=== PATIENT | male | born 1950 | race African-American/Black ===

== ENCOUNTER 2019-11-23 01:05 | Inpatient (IN) | payer BC, MEDICAID ==
[~2019-11-23] VITALS: Ht 182.9 cm; Wt 88.9 kg
[2019-11-23 01:10] VITALS: BP 122/62
--- NOTE | 2019-11-23 01:14 | NUR ---
PT LIV BLS. TAKEN TO BED 7
--- NOTE | 2019-11-23 01:15 | NUR ---
Dr. Brewer examining patient.
[2019-11-23] MEDS ORDERED: NACL 0.9% 1,000 ML IV ONE ×3 (01:18→03:20)
--- NOTE | 2019-11-23 01:20 | NUR ---
PT BIB PAR[facility] FROM HOME C/O ALOC SINCE 3:00 pM. PT WAS RECENTLY SEEN LAST WEEK TO [facility] [facility] AND D/C. HE WAS NEWLY DIAGNOSE FOR LIVER CIRRHOSIS. NOTED ASCITIS ON HIS ABDOMEN. PER PARAMEMEDICS COVID TEST WAS DONE AT [facility] WITH NEGATIVE RESULT. HX- NEWLY DIAGNOSE LIVER CIRRHOSIS, ASCITIS, GERD, UTI WITH WISEMAN CATHETER INTACT FROM HOME. PT FAMILY NAME MARIANO COSME CAN BE CALLED [phone] PT CARE TO SILVINA SIMMONS.
--- NOTE | 2019-11-23 01:49 | NUR ---
X-Ray at bedside.
[2019-11-23 01:55] LABS: HEMOGLOBIN 8.2 g/dL (12.0-18.0); LYMPHOCYTES # (AUTO) 0.2 K/uL (2.0-11.5); RED CELL DISTRIBUTION WIDTH 29.1 % (11.6-13.7); WHITE BLOOD COUNT (AUTO) 3.9 K/uL (4.8-10.8)
--- NOTE | 2019-11-23 01:58 | NUR ---
PT BIBA C/O increasing ALOC, per EMS PT usually goes in and out of confusion, but since this morning has stayed confused with GCS of 14. PT awake, AAOx1 (to name only), follows commands, speech clear/delayed. PT denies pain at this time. ABD is distended, firm, non tender when palpated. PT eyes and skin have juandice tent to them.
[2019-11-23 02:02] LABS: BASOPHILS % (AUTO) 0.8 % (0.0-2.0); EOSINOPHILS % (AUTO) 0.5 % (0.0-4.0); HEMATOCRIT 26.8 % (36-52); LYMPHOCYTES % (AUTO) 4.7 % (20.5-51.1); MEAN CORPUSCULAR HEMOGLOBIN 23 pg (27-31); MEAN CORPUSCULAR HGB CONC 31 g/dL (33-37); MEAN CORPUSCULAR VOLUME 76.6 fL (80-94); MONOCYTES # (AUTO) 0.3 K/uL (0.8-1.0); NEUTROPHILS # (AUTO) 3.4 K/uL (1.8-7.7); PLATELET COUNT (AUTO) 98 K/uL (140-450)
--- NOTE | 2019-11-23 02:12 | NUR ---
URINE SAMPLE COLLECTED AND WALKED TO LAB
[2019-11-23 02:19] LABS: ALBUMIN 2.6 g/dL (3.4-5.0); ANION GAP 15.4 (8-16); CARBON DIOXIDE 21.4 mmol/L (21-32); CREATININE 1.5 mg/dL (0.6-1.3); POTASSIUM 3.8 mmol/L (3.5-5.1); TOTAL BILIRUBIN 1.4 mg/dL (0.0-1.0)
[2019-11-23] MEDS ORDERED: MORPHINE SULFATE 4 MG/ML SYR IVP ONE (02:45)
[2019-11-23] MEDS ORDERED: ONDANSETRON 4 MG/2 ML VIAL IVP ONE (02:45)
--- NOTE | 2019-11-23 03:40 | NUR ---
Dr Brewer obtained consent for abdominal paracenthesis with family over the phone. PT pulled out IV, new IV started, wrapped in coban.
[2019-11-23] MEDS ORDERED: cefTRIAXone 1,000 MG VIAL ONE (03:46)
--- NOTE | 2019-11-23 04:11 | NUR ---
Dr Bowen, Unruly RN, and Gwyn CAICEDO at bedside for paracenthesis
[2019-11-23 04:33] LABS: APPEARANCE,URINE SL CLOUDY (CLEAR); BILIRUBIN,URINE NEGATIVE (NEGATIVE); BLOOD, URINE 2+ (NEGATIVE); COLOR,URINE YELLOW (YELLOW); LEUKOCYTE ESTERASE ,URINE 2+ (NEGATIVE); NITRITE, URINE POSITIVE (NEGATIVE); UGLUCOSE NEGATIVE (NEGATIVE)
--- NOTE | 2019-11-23 04:48 | NUR ---
approximately 4500ml of yellow/orange liquid drained during paracentesis
[2019-11-23 04:50] LABS: WBC,URINE 16-25 (MOD) /HPF (0-5)
[2019-11-23 04:51] LABS: OTHER CASTS, URINE WBC CASTS 1+ /LPF (None Seen)
[2019-11-23] MEDS: NACL 0.9% 1,000 ML IV SCH ×2 (05:41→22:21)
[2019-11-23] MEDS ORDERED: MORPHINE SULFATE 2 MG/ML SYR IVP PRN (05:45)
[2019-11-23] MEDS ORDERED: ONDANSETRON 4 MG/2 ML VIAL IM/IVP PRN (05:45)
[2019-11-23] MEDS ORDERED: HYDROcodone/APAP 5/325 MG 1 TAB TAB PO PRN (05:45)
[2019-11-23] MEDS ORDERED: DOCUSATE SODIUM 100 MG GELCAP PO PRN (05:45)
--- NOTE | 2019-11-23 06:35 | NUR ---
Admited to tele. Will go to room 124. Belongings list completed. Report to nurse.
[2019-11-23 06:45] VITALS: BP 114/68
--- NOTE | 2019-11-23 06:45 | NUR ---
Received patient from ER via gurney. Admitted for increased ALOC. Patient awake,alert, doesn't answer back when you ask him question. Vital signs stable, afebrile, sating 97% on RA. Sinus rhythm on cardiac nurse, HR- 91. IVF NS infusing @ 150 cc/hr as ordered. Rboertson catheter in placed, draining dark karol urine with sediments. No sign and symptoms of distress noted. Will endorse the patient to the oncoming Rn for continuity of care. Call light within reach.
[2019-11-23 06:51] LABS: MAGNESIUM 1.3 mg/dL (1.8-2.4); PHOSPHORUS 4.4 mg/dL (2.5-4.9); THYROID STIMULATING HORMONE 3.81 uIU/mL (0.34-3.74)
--- NOTE | 2019-11-23 07:30 | NUR ---
REPORT RECEIVED FROM COMPUTER TECHNOLOGY TEACHER NURSE. ASSESSMENT DONE ON PT. PT IS RESPONSIVE. PT IS AOX2. SKIN IN TACT. IV IN PLACE. PT WANTS TO BE FULL CODE. NO KNOW ALLERGIES PER PT. PT DOES NOT REMEMBER HIS VACCINE STATUS. PT NEURO CHECK INTACT. NO COMPLAINS OF PAIN. NO DISTRESS NOTED. PT IS RESPONSIVE BY SLIGHTLY SLOW IN RESPONDING. PERRLA. BED IN LOW POSITION. CALL LIGHT IN REACH.
--- NOTE | 2019-11-23 07:30 | NUR ---
Patient stable. Endorsed pt to day Rn Piper for continuity of care. Bed in low position. Signing off.
[2019-11-23 07:34] LABS: BARBITURATE, URINE NEGATIVE ng/ml (NEG <=200); BENZODIAZEPINE, URINE NEGATIVE ng/mL (NEG <=200); CANNABINOID, URINE NEGATIVE ng/mL (NEG <=50); COCAINE, URINE NEGATIVE ng/mL (NEG <=300); OPIATE, URINE NEGATIVE ng/mL (NEG <=2000); PHENCYCLIDINE SCREEN,URINE NEGATIVE ng/mL (NEG <=25)
[2019-11-23 08:00] VITALS: BP 103/67
[2019-11-23] MEDS: PANTOPRAZOLE 40 MG INJ VIAL IVP SCH (08:44)
[2019-11-23 09:10] LABS: RBC, BODY FLUID 20000 /cu. mm.; WBC, BODY FLUID 11600 /cu. mm.
[2019-11-23] MEDS ORDERED: MAGNESIUM OXIDE 400 MG TAB PO SCH (09:28)
[2019-11-23] MEDS ORDERED: MAG SULF 2000 MG/WATER PREMIX 50 ML IV PRN (09:30)
--- NOTE | 2019-11-23 11:53 | NUR ---
NOTED WITH LOW BLOOD PRESSURE OF 91/56. 1 BAG NS BOLUS INFUSING PER DR SRIVASTAVA. WILL CONTINUE TO MONITOR.
[2019-11-23 12:00] VITALS: BP 91/56
--- NOTE | 2019-11-23 12:30 | NUR ---
PT IS SITTING IN BED AND RESPONSIVE AND EATING LUNCH. HEART RATE AT 95. BLOOD PRESSURE AT 108/53. 500 ML IV BOLUS INFUSED SO FAR. NO DISTRESS. WILL CONTINUE TO MONITOR. CALL LIGHT IN REACH.
--- NOTE | 2019-11-23 14:22 | NUR ---
PT IS SITTING IN BED HOB AT 30. WATCHING TELEVISION. PT IS AWAKE AND RESPONSIVE. O2 SATS AT 98%. HR AT 92. NO DISTRESS. WILL CONTINUE TO MONITOR. CALL LIGHT IN REACH.
[2019-11-23] MEDS: ACETAMINOPHEN 325 MG TAB PO PRN ×2 (15:42→20:55)
[2019-11-23 16:00] VITALS: BP 108/65
--- NOTE | 2019-11-23 16:09 | NUR ---
TABULATING MACHINE MECHANIC NOTE: Patient's Orientation Unable To Assess Information Provided By MARIANO COSME - DAUGHTER Comments SW WAS UNABLE TO MEET PATIENT AT BEDSIDE. Veneer Glue Spreader, Realtionship and Phone Number MARIANO COSME [facility] Power of Shear Grinder Operator Helper No Does Patient Have a POLST No Identifying Problems No Social Work Triggers Is A Social Work Consult Needed No Mandate Report Filed No Explanation Of Identifying Problems PATIENT IS A 68-YEAR-OLD MALE ADMITTED FOR SEPSIS AND UTI. PATIENT'S PMHX IS UNKNOWN. Admitted From Home Pre-Admission Level Of Functioning Status Independent/Ambulatory Prior Resources/Services Used In Last 12 Months No Prior Resources Used Prior DME No Prior DME Used Living Situation Lives With Family House Other Living Situation/Comment PATIENT HAS ADEQUATE SUPPORT AT HOME. Patient Had Caregiver No Home Support No Caregiver Issues Financial Issues No Known Financial Issue Referral To The Financial Counselor Needed No Factors/Needs No D/C Needs Identified Pt/Rep Participated In Discharge Plan Yes Patient/Family Agress With Discharge Plan Yes Discharge Plan Comments TENTATIVE DISCHARGE PLAN IS FOR PATIENT TO RETURN HOME.
--- NOTE | 2019-11-23 19:19 | NUR ---
SHIFT REPORT GIVEN TO SERVICE WORKER NURSE. PT IS IN BED IN STABLE CONDITION.
--- NOTE | 2019-11-23 19:30 | NUR ---
RECEIVED REPORT FROM ANA MARIA SIMMONS DAYSHIFT NURSE AT BEDSIDE FOR CONTINUITY OF CARE, PT IN STABLE CONDITION.
[2019-11-23 20:00] VITALS: BP 98/59
--- NOTE | 2019-11-23 20:00 | NUR ---
PT IN BE HE IS AOX2-3 AWAKE NO C/O OF PAIN. IV SITE INTACT AND RUNNING FLUIDS ORDERED.V/S IN NORMAL LIMITS.ALL ORDER PRECAUTIONS IN PLACE.
--- NOTE | 2019-11-23 21:00 | NUR ---
ULTA SOUND COMPLETED OF ABDOMEN, PT GIVEN FOOD REQUESTED. ALL SCHEDULED MEDS GIVEN ORDERED. PT HAS NO C/O VOICED AND ALL REQUESTS ATTENDED.
--- NOTE | 2019-11-23 22:00 | NUR ---
PT WAS TURNED, CHANGED AND REPOSITIONED IN BED. ALL ORDERED PRECAUTIONS IN PLACE. IV SITE INTACT AND RUNNING FLUIDS ORDERED. PT ON ROOM AIR RESPIRATIONS EVEN AND UNLABORED.
[2019-11-24] VITALS: BP 114/54
--- NOTE | 2019-11-24 | NUR ---
PT WAS TURNED, CHANGED AND REPOSITIONED IN BED. V/S IN NORMAL RANGE PT HAD NO C/O VOICED. HE IS LYING IN BED WATCHING TV. ALL REQUESTS ATTENDED AND ALL PRECAUTIONS IN PLACE.
[2019-11-24 04:00] VITALS: BP 110/62
--- NOTE | 2019-11-24 04:30 | NUR ---
PT IN BED NO C/O VOICED . V/S FOLLOWS: T 98.12 P 92 R 18 B/P 110/62 02 100% ON ROOM AIR. [facility] CALLED TO REPORT A POSITIVE GRAM COCCI IN THE BLOOD. EMPIRIC TREATMENT ALREADY ORDERED (ROCEPHIN) WILL AWAIT THE RESULTS OF CULTURE AND SENSITIVITY. IV INTACT FLUIDS RUNNING ORDERED AND ALL ORDERED PRECAUTIONS IN PLACE.
[2019-11-24 06:53] LABS: BASOPHILS % (AUTO) 0.3 % (0.0-2.0); EOSINOPHILS # (AUTO) 0.2 K/uL (0-0.4); EOSINOPHILS % (AUTO) 1.5 % (0.0-4.0); HEMATOCRIT 23.5 % (36-52); HEMOGLOBIN 7.1 g/dL (12.0-18.0); LYMPHOCYTES # (AUTO) 0.6 K/uL (2.0-11.5); LYMPHOCYTES % (AUTO) 5.6 % (20.5-51.1); MEAN CORPUSCULAR HEMOGLOBIN 23 pg (27-31); MEAN CORPUSCULAR HGB CONC 30 g/dL (33-37); MEAN CORPUSCULAR VOLUME 77.3 fL (80-94); MONOCYTES % (AUTO) 9.8 % (1.7-9.3); NEUTROPHILS # (AUTO) 8.4 K/uL (1.8-7.7); NEUTROPHILS % (AUTO) 82.8 % (42.2-75.2); PLATELET COUNT (AUTO) 64 K/uL (140-450); RED BLOOD CELL COUNT(AUTO) 3.03 MIL/uL (4.20-6.10); RED CELL DISTRIBUTION WIDTH 27.2 % (11.6-13.7); WHITE BLOOD COUNT (AUTO) 10.2 K/uL (4.8-10.8)
--- NOTE | 2019-11-24 07:30 | NUR ---
received report from [facility] nurse, assumed care. pt resting comfortably with no s/s of pain and/or distress at this time. personal belongings, bedside table, call light within reach. will continue to monitor.
[2019-11-24 07:44] LABS: ANION GAP 12.3 (8-16); CARBON DIOXIDE 20.7 mmol/L (21-32); CREATININE 1.4 mg/dL (0.6-1.3)
[2019-11-24 09:26] LABS: CHOL/HDL RATIO 1.7 (1-4.5)
[2019-11-24 09:33] VITALS: BP 99/56
--- NOTE | 2019-11-24 09:43 | NUR ---
PATIENT HAS BEEN SCREENED AND CATEGORIZED MODERATE NUTRITION RISK. PATIENT WILL BE SEEN WITHIN 3-5 DAYS OF ADMISSION. 11/25/19 11/27/[address]
[2019-11-24 10:06] LABS: FOLIC ACID 10.8 ng/mL (>3.0)
[2019-11-24] MEDS: PANTOPRAZOLE 40 MG INJ VIAL IVP SCH (11:10)
[2019-11-24 12:00] VITALS: BP 104/60
[2019-11-24] MEDS: NACL 0.9% 1,000 ML IV SCH (16:12)
--- NOTE | 2019-11-24 17:26 | NUR ---
P.T. NOTES P.T. EVAL COMPLETED; REFER TO EVAL FOR DETAILS; WILL BENEFIT W/ P.T. POST ACUTE STAY.
[2019-11-24] MEDS: ACETAMINOPHEN 325 MG TAB PO PRN (17:37)
--- NOTE | 2019-11-24 18:05 | NUR ---
care plan reviewed, interventions implemented: fall risk prevention, repositioned frequently throughout shift, hourly rounding, labs and i/o monitored. VSS, febrile towards end of shift, tylenol x2 given for temperature of 101.3 temporal. pt states he feels fine and continues on iv abx with no adverse reactions noted and/or reported. critical value came back with gram + cocci/clusters, CRN aware. all needs met this shift. personal belongings, bedside table call light within reach. will continue to monitor.
--- NOTE | 2019-11-24 19:20 | NUR ---
RECEIVED PT IN STABLE CONDITION FROM AM NURSE FOR CONTINUITY OF CARE. AWAKE,ALERT ,ORIENTED X2. ON TELE MONITOR. WITH NO S/S OF ANY RESPIRATORY DISTRESS NOTED. IVF INFUSING WELL ON THE LT AC G#20 CLEAR AND PATENT. BEDREST. WITH WISEMAN CATHETER DRAINING WELL. FREQ ROUNDS NEEDED. BED ON LOW POSITION. SIDE RAILS UP X2. CALL LIGHT WITHIN REACH. BED ALARM ON. WILL CONTINUE TO MONITOR.
[2019-11-24 20:00] VITALS: BP 109/59
--- NOTE | 2019-11-24 21:00 | NUR ---
MADE ROUNDS. PT IS ASLEEP. NO S/S OF ANY DISCOMFORT NOR PAIN NOTED.
--- NOTE | 2019-11-24 23:00 | NUR ---
CHECKED ON PT. SLEEPING AT THIS TIME. NO S/S OF ANY DISCOMFORT NOTED. WILL CONTINUE TO MONITOR.
[2019-11-25] VITALS: BP 119/57
--- NOTE | 2019-11-25 01:30 | NUR ---
MADE ROUNDS. PT REQUESTED FOR SOME PUDDING. TOLERATED WELL.
--- NOTE | 2019-11-25 02:30 | NUR ---
MADE ROUNDS. PT ASLEEP. NO S/S OF ANY DISCOMFORT /PAIN NOTED.
[2019-11-25 03:49] VITALS: BP 130/72
--- NOTE | 2019-11-25 04:55 | NUR ---
BLOOD CULTURE ANAEROBIC RESULT POSITIVE GRAM +COCCI. PAGED DR. Parker HODGES AND MADE AWARE. HE SAID TO CONTINUE WITH ROCEPHIN ANTIBIOTICS FOR NOW AND WILL WAIT FOR THE CULTURE.
[2019-11-25 06:20] LABS: ANION GAP 12.7 (8-16); CARBON DIOXIDE 21.3 mmol/L (21-32); CREATININE 1.3 mg/dL (0.6-1.3)
[2019-11-25 06:23] LABS: BASOPHILS % (AUTO) 0.5 % (0.0-2.0); EOSINOPHILS # (AUTO) 0.1 K/uL (0-0.4); EOSINOPHILS % (AUTO) 1.3 % (0.0-4.0); HEMATOCRIT 26.2 % (36-52); LYMPHOCYTES # (AUTO) 0.4 K/uL (2.0-11.5); LYMPHOCYTES % (AUTO) 6.4 % (20.5-51.1); MEAN CORPUSCULAR HEMOGLOBIN 23 pg (27-31); MEAN CORPUSCULAR HGB CONC 31 g/dL (33-37); MONOCYTES # (AUTO) 0.5 K/uL (0.8-1.0); MONOCYTES % (AUTO) 7.9 % (1.7-9.3); NEUTROPHILS # (AUTO) 5.8 K/uL (1.8-7.7); NEUTROPHILS % (AUTO) 83.9 % (42.2-75.2); PLATELET COUNT (AUTO) 71 K/uL (140-450); RED BLOOD CELL COUNT(AUTO) 3.45 MIL/uL (4.20-6.10); RED CELL DISTRIBUTION WIDTH 27.3 % (11.6-13.7); WHITE BLOOD COUNT (AUTO) 6.9 K/uL (4.8-10.8)
[2019-11-25 06:30] LABS: MAGNESIUM 1.7 mg/dL (1.8-2.4); PHOSPHORUS 2.4 mg/dL (2.5-4.9)
--- NOTE | 2019-11-25 06:30 | NUR ---
IV ON THE LT AC G#20. PULLED OUT. NEW IV STARTED ON THE LT WRIST G#22. CLEAR AND PATENT.
--- NOTE | 2019-11-25 07:10 | NUR ---
ENDORSED PT IN STABLE CONDITION TO AM NURSE.
--- NOTE | 2019-11-25 07:12 | NUR ---
RECEIVED BEDSIDE REPORT FROM VIDEO COORDINATOR NURSE FOR CONTINUITY OF CARE. PATIENT AWAKE, ALERT AND ORIENTED X2. WITH NO ACUTE DISTRESS NOTED. IV INFUSING WELL WITH NS 60 CC/HR AT LEFT WRIST 22G, PATENT. WISEMAN DRAINING WELL WITH CLOUDY URINE. SINUS RHYTHM. SAFETY MEASURES IN PLACE. BED IN LOW POSITION, CALL LIGHT WITHIN REACH. WILL FREQUENT MAKE ROUNDS.
[2019-11-25] MEDS: NACL 0.9% 1,000 ML IV SCH (07:41)
[2019-11-25 08:00] VITALS: BP 124/68
[2019-11-25] MEDS: PANTOPRAZOLE 40 MG INJ VIAL IVP SCH (08:33)
--- NOTE | 2019-11-25 08:33 | NUR ---
SCHEDULED MORNING MEDICATIONS GIVEN, EDUCATION PROVIDED, PATIENT TOLERATED WELL. PATIENT IS HAVING BREAKFAST. AAOX3. SAFETY MEASURES IN PLACE. WILL CONTINUE TO MONITOR.
--- NOTE | 2019-11-25 11:05 | NUR ---
PATIENT RESTING IN BED, AWAKE, AAOX2. NO ACUTE DISTRESS NOTED. CALL LIGHT WITHIN REACH. WILL CONTINUE TO MONITOR.
--- NOTE | 2019-11-25 11:31 | NUR ---
P.T. NOTES PATIENT REFUSED TO PARTICIPATE WITH THERAPY SERVICES IN SPITE OF SEVERAL ATTEMPTS AND ENCOURAGEMENTS WERE GIVEN. EDUCATED ON THE IMPORTANCE OF MOBILITY AND GAIT FUNCTIONAL ACTIVITIES BUT STATES "NOT TODAY, MAYBE TOMORROW!". PLAN: FOLLOW UP AGAIN TOMORROW AND CONTINUE PER PLAN OF CARE IF HE REMAINS IN THIS HOSPITAL.
[2019-11-25 12:00] VITALS: BP 139/74
--- NOTE | 2019-11-25 13:05 | NUR ---
MADE ROUNDS. NO ACUTE DISTRESS NOTED. PT DENIES PAIN. PATIENT SITTING IN BED, AWAKE. AAOX2. SAFETY MEASURES IN PLACE. WILL CONTINUE TO MONITOR.
--- NOTE | 2019-11-25 15:00 | NUR ---
PATIENT RESTING IN BED. HOB ELEVATED. PATIENT DENIES PAIN OR DISCOMFORT. NO RESPIRATORY DISTRESS NOTED. WILL CONTINUE TO MONITOR.
[2019-11-25 16:00] VITALS: BP 131/76
--- NOTE | 2019-11-25 16:00 | NUR ---
DC PLANNIN YRS OLD MALE PATIENT WAS ADMITTED FROM HOME WITH A DX OF SEPSIS, UTI, R/O SBP . PT HAS A HX OF LIVER CIRRHOSIS ,HTN AND ASCITES. CXR SHOWED SHALLOW INSPIRATION NO OTHER EVIDENCE OF ACUTE CARDIOPULMONARY DISEASE. US ABDOMEN SHOWED SMALL ASCITES . ADMINISTERED ZOSYN AND ROCEPHIN ABX. ORDERED PARACENTESIS ,CONSULTED WITH ID. DC PLAN TO GO HOME WHEN STABLE CM TO FOLLOW. Addendum: 11/27/19 at 1614 by Johanna Diego CM DC PLANNING: IR PERFORMED ULTRASOUND GUIDED PARACENTESIS. REMOVED LARGE VOLUME OF ASCITES . BLOOD CULTURE GREW STAPHYLOCOCCUS , ADMINISTERED ZOSYN ,CONSULTED ID DR HELMS. CM TO FOLLOW Addendum: 11/28/19 at 1514 by Rolanda Castro CM FAXED PATIENTS CLINICALS TO [facility] [phone]. Addendum: 12/01/19 at 1201 by Rolanda Castro CM PATIENT REFUSES SNF. PER DR. HODGES PATIENT CAN DISCHARGE HOME, HE WILL RECOMMEND HOME HEALTH FOR PT. Addendum: 12/01/19 at 1311 by Rolanda Castro CM FAXED ORDER FOR HOME PT, WHEEL CHAIR, AND COMMODE TO INSURANCE. WILL FOLLOW UP Addendum: 12/01/19 at 1426 by Rolanda Castro CM FAXED PATIENTS CLINICALS TO [facility] [phone]. [place] [facility] [place] SHE RECEIVED FA[place] AND WILL CONTACT ME BACK AFTER REVIEWING AND RUNNING ELIGIBILITY Addendum: 12/01/19 at 1513 by Rolanda Castro CM TROY SAEED CALLED ASKING IF I COULD SET UP TRANSPORTATION FOR PATIENT. CONTACTED PATIENTS MUSTAPHA QUINTANA [phone] SHE WILL BE HERE BY 3:30 PM TO PARKING WORKER PATIENT. NOTIFIED TROY SAEED Addendum: 12/01/19 at 1605 by Rolanda Castro CM FOLLOWED UP WITH [employer] THEY CAN NOT ACCEPT THIS PATIENT BECAUSE THE PATIENTS INSURANCE IS NOT CONTRACTED. FAXED CLINICALS TO [employer] [phone] FAX [phone] Addendum: 12/01/19 at 1634 by Rolanda Castro CM FOLLOWED UP WITH [employer] AND SPOKE TO HE STATED THAT THEY CAN NOT ACCEPT THIS PATIENT AT THIS TIME BECAUSE THEY ARE HAVING TROUBLE RECEIVING PAYMENTS FROM [employer] Addendum: 12/01/19 at 1641 by Rolanda Castro CM FAXED PATIENTS CLINICALS TO [facility] FOR WHEEL CHAIR AND COMMODE. RECEIVED A CALL FROM [facility] HOWEVER THE PATIENTS INSURANCE DOES NOT COVER THE COST FOR DME Addendum: 12/01/19 at 1646 by Rolanda Castro SPOKE TO PATRICE AT [facility] TO INQUIRE IF THEY ACCEPT PATIENTS INSURANCE AND IF THEY SERVICE IN [place]. SHE STATED THAT THEY DO AND TO FAX CLINICALS TO [phone]. PHONE NUMBER [phone].
--- NOTE | 2019-11-25 17:00 | NUR ---
RECHECKED PATIENT'S TEMPERATURE. 99.5, COOLING ICE BAG PROVIDED. PATIENT TOLERATED WELL. WILL CONTINUE TO MONITOR.
--- NOTE | 2019-11-25 17:35 | NUR ---
PATIENT'S IV WAS ACCIDENTLY PULLED OUT BY THE PATIENT. SN STARTED NEW IV 22 G AT LEFT FOREARM. PATENT AND CLEAN. RECONNECT IV NS @60 CC/HR. PATIENT STILL DENIES PAIN OR DISCOMFORT. SAFETY MEASURES IN PLACE. WILL CONTINUE TO MONITOR.
[2019-11-25] MEDS: MAGNESIUM OXIDE 400 MG TAB PO SCH (19:01)
--- NOTE | 2019-11-25 19:02 | NUR ---
1 DOSE ONLY OF MAG-OX 400MG GIVEN, EDUCATION PROVIDED, PATIENT TOLERATED WELL. PATIENT DENIES PAIN OR DISCOMFORT, WILL ENDORSE PATIENT TO FLUE GAS ANALYST NURSE.
--- NOTE | 2019-11-25 19:34 | NUR ---
ENDORSED PATIENT TO FARMWORKER RICE NURSE FOR CONTINUITY OF CARE.
--- NOTE | 2019-11-25 19:35 | NUR ---
RECEIVE DPT IN STABLE CONDITION FROM AM NURSE. AWAKE,ALERT AND ORIENTED X3. ON TELE MONITOR. NO S/S OF ANY DISCOMFORT NOR PAIN NOTED. IVF INFUSING WELL ON THE LT FAg22. CLEAR AND PATENT. WISEMAN CATH DRAINING TO A CLOUDY YELLOWISH URINE. FREQ ROUNDS NEEDED. BED ON LOWEST POSITION. SIDE RAILS UP X2. CALL LIGHT PLACED WITHIN EASY REACH. WILL CONTINUE TO MONITOR.
[2019-11-25 20:00] VITALS: BP 120/72
[2019-11-25] MEDS: ACETAMINOPHEN 325 MG TAB PO PRN (20:32)
--- NOTE | 2019-11-25 20:32 | NUR ---
TEMP 101. COOLING MEASURES DONE. THEN ALSO GIVEN TYLENOL 650 MG PO. WILL CONTINUE TO MONITOR.
--- NOTE | 2019-11-25 21:30 | NUR ---
MADE ROUNDS. PT ASLEEP. TEMP RECHECKED RESULT 98.7
--- NOTE | 2019-11-25 23:30 | NUR ---
MADE ROUNDS. PT IS ASLEEP. NO DISCOMFORT NOTED.
[2019-11-26] VITALS (7 sets, daily range): BP systolic 106–130; BP diastolic 57–89
[2019-11-26] MEDS: NACL 0.9% 1,000 ML IV SCH ×2 (00:21→08:40)
--- NOTE | 2019-11-26 01:30 | NUR ---
MADE ROUNDS. PT IS SLEEPING WELL. NO S/S OF ANY DISCOMFORT/PAIN NOTED. WILL CONTINUE TO MONITOR.
--- NOTE | 2019-11-26 02:30 | NUR ---
MADE ROUNDS . PT ASLEEP. NO DISTRESS NOTED. O2 SAT 100% ON RA.WILL CONTINUE TO MONITOR.
--- NOTE | 2019-11-26 04:30 | NUR ---
PT IS AWAKE. NO C/O ANY DISCOMFORT /DISTRESS NOTED. O2 SAT ON RA 100%.
[2019-11-26 05:59] LABS: BASOPHILS # (AUTO) 0.1 K/uL (0.00-0.22); BASOPHILS % (AUTO) 0.7 % (0.0-2.0); EOSINOPHILS # (AUTO) 0.3 K/uL (0-0.4); EOSINOPHILS % (AUTO) 3.6 % (0.0-4.0); HEMATOCRIT 24.4 % (36-52); HEMOGLOBIN 7.5 g/dL (12.0-18.0); LYMPHOCYTES # (AUTO) 0.4 K/uL (2.0-11.5); LYMPHOCYTES % (AUTO) 5.8 % (20.5-51.1); MEAN CORPUSCULAR HEMOGLOBIN 23 pg (27-31); MEAN CORPUSCULAR HGB CONC 31 g/dL (33-37); MEAN CORPUSCULAR VOLUME 75.7 fL (80-94); MONOCYTES # (AUTO) 0.9 K/uL (0.8-1.0); MONOCYTES % (AUTO) 11.8 % (1.7-9.3); NEUTROPHILS # (AUTO) 5.9 K/uL (1.8-7.7); NEUTROPHILS % (AUTO) 78.1 % (42.2-75.2); PLATELET COUNT (AUTO) 70 K/uL (140-450); RED BLOOD CELL COUNT(AUTO) 3.22 MIL/uL (4.20-6.10); RED CELL DISTRIBUTION WIDTH 26.8 % (11.6-13.7); WHITE BLOOD COUNT (AUTO) 7.6 K/uL (4.8-10.8)
--- NOTE | 2019-11-26 06:30 | NUR ---
PT HAS BEEN STABLE THIS AAM . NO FEVER NOTED. LATEST TEMP 97.8
--- NOTE | 2019-11-26 07:29 | NUR ---
ENDORSED PT IN STABLE CONDITION TO AM NURSE.
--- NOTE | 2019-11-26 07:30 | NUR ---
BEDSIDE REPORT GIVEN BY NIGHT NURSE. PATIENT IN BED, ASLEEP AND EASILY AROUSABLE BY NAME OR TOUCH. RESPIRATIONS EVEN AND UNLABORED. SKIN WARM AND DRY TO TOUCH. IV INTACT AND PATENT TO LEFT FOREARM IVF NS INFUSING @ 60ML/HR. TOLERATING WELL. BED IN LOW POSITION. PLANS OF CARE DISCUSSED. CALL LIGHT WITHIN REACH.
[2019-11-26] MEDS: PANTOPRAZOLE 40 MG INJ VIAL IVP SCH (08:23)
[2019-11-26 08:46] LABS: ANION GAP 12.1 (8-16); CARBON DIOXIDE 21.6 mmol/L (21-32); CREATININE 1.1 mg/dL (0.6-1.3); POTASSIUM 3.7 mmol/L (3.5-5.1)
--- NOTE | 2019-11-26 09:30 | NUR ---
PATIENT ATE BREAKFAST. TOLERATED AM MEDS. DENIES PAIN OR DISCOMFORT. NO SOB NOTED.
[2019-11-26 12:20] LABS: MAGNESIUM 1.7 mg/dL (1.8-2.4); PHOSPHORUS 3.2 mg/dL (2.5-4.9)
--- NOTE | 2019-11-26 12:30 | NUR ---
PT IS AWAKE, EATING LUNCH INDEPENDENTLY. NO S/S OF DISTRESS NOTED.
--- NOTE | 2019-11-26 13:30 | NUR ---
RECEIVED CALL FROM RADIOLOGIST THAT US PARACENTESIS IS NOT APPROPRIATE TO BE DONE DUE TO INSUFFICIENT FLUID NOTED. DR. OLIVAS MADE AWARE.
--- NOTE | 2019-11-26 14:30 | NUR ---
PATIENT IS AWAKE, WATCHING TV. NO S/S OF DISTRESS NOTED. CALL LIGHT WITHIN REACH.
--- NOTE | 2019-11-26 15:02 | NUR ---
11/26/19 RD INITIAL ASSESSMENT COMPLETED PLEASE REFER TO NUTRITION ASSESSMENT UNDER CARE ACTIVITY FOR ESTIMATED NUTRITIONAL NEEDS. 1. CONTINUE HEPATIC MSC DIET TOLERATED 2. ENCOURAGE PO INTAKE 3. RD TO FOLLOW-UP 3-5 DAYS, MODERATE RISK JACKSON ZARAGOZA, RD
--- NOTE | 2019-11-26 16:55 | NUR ---
PER RADIOLOGY DEPT. [facility], A RADIOLOGIST WILL COORDINATE TOMORROW TO EVALUATE IF PATIENT WILL HAVE PARACENTESIS PROCEDURE. RECOMMENDED THAT PATIENT WILL NEED CURRENT LABS WITH PT/INR, PTT AND OBTAINED CONSENT FOR PARACENTESIS. DR. OLIVAS MADE AWARE. ORDER RECEIVED AND NOTED.
--- NOTE | 2019-11-26 17:09 | NUR ---
CONSENT OBTAINED VIA TELEPHONE FROM MARIANO (DAUGHTER). VERIFIED WITH 2ND NURSE.
--- NOTE | 2019-11-26 17:33 | NUR ---
ROUNDS MADE. PATIENT IS AWAKE, ORIENTED X2. WATCHING TV. NO DISTRESS NOTED. DENIES SOB OR DISCOMFORT.
[2019-11-26] MEDS: MAGNESIUM OXIDE 400 MG TAB PO SCH (18:50)
--- NOTE | 2019-11-26 20:00 | NUR ---
RECEIVED REPORT FROM THE DAY RN REGARDING THE PATIENT FOR CONTINUITY OF CARE. PATIENT ASLEEP DURING ROUNDS AND EASY TO AROUSED. NOT IN ANY DISTRESS. DENIES ANY PAIN,CHEST PAIN,SOB AND PALPITATIONS. VSS, AFEBRILE, SATING 99% ON RA. ST WITH PAC ON COMMERCIAL INSURANCE UNDERWRITER, HR-102. FALL PRECAUTION IMPLEMENTED. INSTRUCTED THE PATIENT NOT TO GET OOB WITHOUT ASSISTANCE. PATIENT VERBALIZED UNDERSTANDING BUT NEEDS REINFORCEMENT. CALL LIGHT WITHIN REACH.
--- NOTE | 2019-11-26 22:00 | NUR ---
NO SCHEDULED MEDICATIONS NOTED ON BRUSH HAND FOR THE PT. PATIENT SLEEPING OFF AND ON. NO SIGN AND SYMPTOMS OF DISTRESS NOTED AND NO COMPLAIN AT THIS TIME. SAFETY MEASURES IN PLACED. CALL LIGHT WITHIN REACH.
[2019-11-27] VITALS: BP 127/77
--- NOTE | 2019-11-27 | NUR ---
PATIENT VITAL SIGNS STABLE,AFEBRILE, SATING 100% ON RA. SINUS RHYTHM ON UTILITY ACCOUNTS DIRECTOR, HR-99. NO COMPLAIN OF PAIN AT THIS TIME. CALL LIGHT WITHIN REACH.
--- NOTE | 2019-11-27 02:15 | NUR ---
MADE ROUNDS AND HUNG A NEW BAG OF IVF. ABOUT TO REPOSITION THE PATIENT AND FOUND OUT THAT THE PATIENT IV IS OUT AND PER PATIENT HE PULLED IT OUT AND STATED THAT HE DOESN'T NEED IT. EXPLAINED TO THE PATIENT THAT I NEED TO PLACE A NEW IV BECAUSE HE HAS IVF RUNNING AND ANTIBIOTIC BUT PATIENT REFUSED. WILL TRY AGAIN LATER.
[2019-11-27] MEDS: NACL 0.9% 1,000 ML IV SCH (02:16)
[2019-11-27 04:00] VITALS: BP 115/84
--- NOTE | 2019-11-27 04:00 | NUR ---
MADE ROUNDS AND CHECKED THE PT VITAL SIGNS. PT VSS, AFEBRILE, SATING 99% ON RA. SINUS RHYTHM ON VENEER MEASURER, HR-99. DENIES PAIN AT THIS TIME.NOT IN ANY DISTRESS. CALL LIGHT WITHIN REACH.
[2019-11-27 05:57] LABS: BASOPHILS % (AUTO) 0.5 % (0.0-2.0); EOSINOPHILS # (AUTO) 0.2 K/uL (0-0.4); EOSINOPHILS % (AUTO) 2.1 % (0.0-4.0); HEMATOCRIT 26.1 % (36-52); LYMPHOCYTES # (AUTO) 0.5 K/uL (2.0-11.5); LYMPHOCYTES % (AUTO) 6.3 % (20.5-51.1); MEAN CORPUSCULAR HEMOGLOBIN 23 pg (27-31); MEAN CORPUSCULAR HGB CONC 31 g/dL (33-37); MONOCYTES # (AUTO) 0.8 K/uL (0.8-1.0); MONOCYTES % (AUTO) 9.7 % (1.7-9.3); NEUTROPHILS # (AUTO) 6.6 K/uL (1.8-7.7); NEUTROPHILS % (AUTO) 81.4 % (42.2-75.2); PLATELET COUNT (AUTO) 73 K/uL (140-450); RED BLOOD CELL COUNT(AUTO) 3.43 MIL/uL (4.20-6.10); RED CELL DISTRIBUTION WIDTH 26.2 % (11.6-13.7); WHITE BLOOD COUNT (AUTO) 8.1 K/uL (4.8-10.8)
[2019-11-27 06:23] LABS: MAGNESIUM 1.7 mg/dL (1.8-2.4); PHOSPHORUS 2.9 mg/dL (2.5-4.9)
[2019-11-27 06:30] LABS: ANION GAP 14.9 (8-16); CARBON DIOXIDE 19.9 mmol/L (21-32); CREATININE 1.1 mg/dL (0.6-1.3); POTASSIUM 3.8 mmol/L (3.5-5.1)
--- NOTE | 2019-11-27 06:34 | NUR ---
PATIENT STILL REFUSED TO PLACE A NEW IV LINE. OTHERWISE PATIENT IS STABLE. NO ACUTE EVENTS THROUGHOUT THE NIGHT. NO SIGN AND SYMPTOMS OF DISTRESS NOTED. NO COMPLAIN AT THIS TIME. ALL NEEDS ATTENDED. CALL LIGHT WITHIN REACH. WILL ENDORSE THE PATIENT TO THE ONCOMING RN FOR CONTINUITY OF CARE.
[2019-11-27 06:49] LABS: PROTHROMBIN TIME 12.9 secs (10.8-13.4)
--- NOTE | 2019-11-27 07:10 | NUR ---
RECEIVED PATIENT FROM NIGHT NURSE. PATIENT IS AWAKE AND RESPONSIVE. RESP EVEN AND UNLABORED ON ROOM AIR. NO IV ACCESS AT THIS TIME. WILL MAKE ATTEMPTS. NO NOTED DISTRESS PATIENT DENIES OF PAIN AT THIS TIME. PLAN OF CARE DISCUSSED WITH PATIENT. PATIENT VERBALIZED UNDERSTANDING. SAFETY MEASURES IN PLACE. WILL CONTINUE WITH CARE.
[2019-11-27 08:00] VITALS: BP 131/78
--- NOTE | 2019-11-27 09:50 | NUR ---
FEW ATTEMPTS MADE TO START IV, UNSUCCESSFUL. WILL ASK CHARGE NURSE FOR ASSIST.
[2019-11-27] MEDS: PANTOPRAZOLE 40 MG INJ VIAL IVP SCH (11:34)
--- NOTE | 2019-11-27 11:46 | NUR ---
IV INSERTION BY CHARGE NURSE SUCCESSFUL. LEFT UPPER ARM 22. ROCEPHIN AND MORNING ROUTINE MEDICATIONS GIVEN. PATIENT TOLERATED WELL. RESP EVEN AND UNLABORED ON ROOM AIR. PATIENT IS ENCOURAGED TO NOT PULL OUT HIS IV. PATIENT VERBALIZED UNDERSTANDING AND WILL COMPLY. SKIN IS WARM TO TOUCH. ABDOMEN IS ROUND HARD AND LARGE. PENDING PROCEDURES TODAY FOR PARACENTESIS. WILL CONTINUE TO MONITOR.
[2019-11-27 12:00] VITALS: BP 129/76
--- NOTE | 2019-11-27 12:48 | NUR ---
PATIENT IS GETTING HIS PARACENTESIS AT BEDSIDE. TIMEOUT FORM COMPLETED BY BEDSIDE WITH AND MARCELLA ESCALONA. ENDORSED PATIENT TO TROY COOPER FOR CONTINUITY OF CARE. PATIENT IN STABLE CONDITION.
--- NOTE | 2019-11-27 12:50 | NUR ---
RECEIVED PATIENT FROM AMADO SIMMONS FOR TRANSFER AND CONTINUITY OF CARE
--- NOTE | 2019-11-27 14:05 | NUR ---
PARACENTESIS COMPLETED. 7L OUTPUT. PATIENT STATED PARACENTESIS MADE A LITTLE DIFFERENCE. WILL SEND SPECIMEN TO THE LAB.
[2019-11-27 15:03] LABS: APPEARANCE,UNSPUN,BODY FLUID SLIGHTLY HAZY (CLEAR); COLOR,BODY FLUID YELLOW (LT YELLOW); SPECIMENTYPE,BODY FLUID PARACENTESIS; TOTAL VOLUME,BODY FLUID 7150 mL
[2019-11-27 16:03] LABS: APPEARANCE,SPUN,BODY FLUID CLEAR (CLEAR); POLYNUCLEAR, BODY FLUID 80 %; RBC, BODY FLUID 2720 /cu. mm.; WBC, BODY FLUID 2560 /cu. mm.
[2019-11-27 16:24] VITALS: BP 94/67
--- NOTE | 2019-11-27 16:27 | NUR ---
PATIENT IS RESTING IN BED. NO S/S OF DISTRESS NOTED. BED IN LOW POSITION. CALL LIGHT IS WITHIN REACH. WILL CONTINUE TO MONITOR.
--- NOTE | 2019-11-27 17:35 | NUR ---
HUNG ZOSYN IVPB AT 100ML/HR. PT RESTING IN BED WATCHING TV. NO ACUTE DISTRESS NOTED. WILL CONTINUE TO MONITOR.
[2019-11-27] MEDS ORDERED: PIPERACILLIN/TAZOBACTAM 3.375 GM in DEXTROSE 5% 50 ML IV SCH (18:00)
[2019-11-27] MEDS: MAGNESIUM OXIDE 400 MG TAB PO SCH (18:28)
--- NOTE | 2019-11-27 18:31 | NUR ---
MAG OX GIVEN FOR MAGNESIUM LEVEL OF 1.7. MEDICATION EDUCATION GIVEN. SWALLOWED PILL OKAY. WILL CONTINUE TO MONITOR.
--- NOTE | 2019-11-27 19:15 | NUR ---
ENDORSED PATIENT TO THE CARBON PAPER INTERLEAFER NURSE FOR CONTINUITY OF CARE. PATIENT IS IN STABLE CONDITION.
--- NOTE | 2019-11-27 19:15 | NUR ---
RECEIVED BEDSIDE ENDORSEMENT FROM AM SHIFT RN. AOX3. PATIENT IS NOT IN DISTRESS, RESPIRATION EVEN AND UNLABORED, NO SOB, DENIES PAIN, LOW BED IN PLACE, PLAN OF CARE DISCUSSED. CALL LIGHT WITHIN REACH.
[2019-11-27 20:00] VITALS: BP 119/79
--- NOTE | 2019-11-27 21:25 | NUR ---
SEEN BY DR. HELMS. ORDERED TO Gemini/Roula LEON. NOTED AND CARRIED OUT.
[2019-11-28] VITALS: BP 106/67
--- NOTE | 2019-11-28 | NUR ---
CHECKED PATIENT AND REPOSITIONED. KEPT CLEAN, DRY AND COMFORTABLE.
[2019-11-28] MEDS: ACETAMINOPHEN 325 MG TAB PO PRN (00:59)
--- NOTE | 2019-11-28 02:09 | NUR ---
PATIENT SLEEPING, RESPIRATION EVEN AND UNLABORED.
[2019-11-28] MEDS: NACL 0.9% 1,000 ML IV SCH ×2 (02:21→06:33)
[2019-11-28 04:00] VITALS: BP 106/64
--- NOTE | 2019-11-28 06:33 | NUR ---
HANGED A NEW BAG OF IVF NS AT 60 CC/HR ORDERED.
--- NOTE | 2019-11-28 07:15 | NUR ---
PATIENT IS IN STABLE CONDITION. ENDORSED TO AM SHIFT RN FOR CONTINUITY OF CARE.
--- NOTE | 2019-11-28 07:15 | NUR ---
RECEIVED BEDSIDE REPORT FROM SYRUP SHED SUPERVISOR NURSE FOR CONTINUITY OF CARE. PATIENT ASLEEP DURING ROUNDS AND EASY TO AROUSED. NOT IN ANY DISTRESS. DENIES ANY PAIN,CHEST PAIN,SOB AND PALPITATIONS. VSS, AFEBRILE, SATING 99% ON RA. IV SITE NOTED, PATENT AND INTACT WITH IVF RUNNING PER ORDERS. FALL PRECAUTION IMPLEMENTED. POC DISCUSSED AND PATIENT VERBALIZED UNDERSTANDING BUT NEEDS REINFORCEMENT. CALL LIGHT WITHIN REACH. WILL CONTINUE TO MONITOR.
[2019-11-28 08:00] VITALS: BP 98/40
[2019-11-28] MEDS: PANTOPRAZOLE 40 MG INJ VIAL IVP SCH (08:30)
--- NOTE | 2019-11-28 08:44 | NUR ---
FULLY AWAKE AND HAVING HIS BREAKFAST. DUE MEDICATION GIVEN. SAFETY MEASURES IN PLACE AND CONTINUE MONITOR
[2019-11-28 10:36] LABS: GLUCOSE,BODY FLUID 56 mg/dL
[2019-11-28 10:37] LABS: LDH,BODY FLUID 423 U/L
--- NOTE | 2019-11-28 11:57 | NUR ---
COVID TEST VIA THROAT SWAB DONE AND SENT TO LAB.
[2019-11-28 12:00] VITALS: BP 98/57
--- NOTE | 2019-11-28 13:10 | NUR ---
LUNCH SERVED WITH HEPATIC DIET
--- NOTE | 2019-11-28 14:10 | NUR ---
AWAKE AND REQUESTED TO CALL HIS THROUGH PHONE. NO COMPLAINTS MADE AND APPARENTLY WATCHING TV.
[2019-11-28 16:00] VITALS: BP 116/73
--- NOTE | 2019-11-28 18:10 | NUR ---
PATIENT IS CLEANED, CHANGED AND TURNED. NO SIGNS OF DISTRESS NOTED. WILL CONTINUE TO MONITOR.
[2019-11-28] MEDS: MAGNESIUM OXIDE 400 MG TAB PO SCH (18:14)
--- NOTE | 2019-11-28 18:16 | NUR ---
AFTERNOON MEDICATIONS GIVEN. MAGNESIUM 1.7. NO SIGNS OF DISTRESS NOTED. WILL CONTINUE TO MONITOR.
--- NOTE | 2019-11-28 19:23 | NUR ---
ENDORSED TO TRACK SERVICE WORKER NURSE FOR CONTINUITY OF CARE IN STABLE CONDITION
--- NOTE | 2019-11-28 19:24 | NUR ---
RECEIVED REPORT FROM GISEL RN. PT IS STABLE LAYING IN BED SEMI-FOWLERS POSITION. DENIES ANY DISTRESS AT THIS TIME.
[2019-11-28 20:00] VITALS: BP 102/62
--- NOTE | 2019-11-28 20:55 | NUR ---
LAYING IN BED IN SEMI-FOWLERS POSITION IN NO DISTRESS.. RESPIRATION EVEN AND UNLABORED. DENIES PAIN AT THIS TIME. V/S: 97.6, 101, 20, 102/76, 99 % RA. ABDOMINAL AREA SIGNIFICANTLY ROUND DUE TO ASCITES. BS ACTIVE X 4 PT WAS ASSISTED WITH MAKING OHONE CALL TO . ALL NEEDS MET AT THIS TIME. CONTINUES TO RECEIVE IVF NS AT 60ML/HR TO RIGHT UPPER ARM. IV PATENT AND INTACT. WILL CONTINUE WITH POC.
--- NOTE | 2019-11-28 22:10 | NUR ---
DURING ROUNDS PT IS OBSERVED WITH EYES CLOSED. RESPIRATION EVEN AND UNLABORED IN NO DISTRESS. WILL CONTINUE TO MONITOR.
[2019-11-28] MEDS ORDERED: ZOLPIDEM 5 MG TAB PO PRN (22:35)
[2019-11-29] VITALS: BP 122/76
--- NOTE | 2019-11-29 | NUR ---
PT ASSISTED WITH PROVISION AND OF CARE AND REFUSED TO BE TURNED. PT STATES IT IS UNCOMFORTABLE. V/S: 98.0, 103,1, 8, 122/76, 99% RA, PT C/O BEING UNABLE TO SLEEP. SPOKE WITH DR. HODGES WHO IS COVERING DR. RODRIGUEZ AND FOR AN ORDER FOR AMBIEN 5MG PO FOR SLEEP PRN. PT WAS GIVEN PRN AT 2323.
--- NOTE | 2019-11-29 02:30 | NUR ---
PT CURRENTLY RESTING IN BED WITH EYES CLOSED. RESPIRATION EVEN AND UNLABORED. IN NO ACUTE DISTRESS. WILL CONTINUE TO MONITOR SPO2 100 % ON RA. CALL LIGHT WITHIN REACH.
[2019-11-29 04:00] VITALS: BP 124/75
--- NOTE | 2019-11-29 04:30 | NUR ---
PT RESTING IN BED EASILY AROUSABLE. V/S: 98.1, 102, 18, 124/78, 100% RA PAIN 0/10. PT HAS MOMENTS OF AGITATION, RAISING VOICE AT STAFF. ATTEMPTED TO GET OUT OF BED X 1 HOWEVER PT WAS REDIRECTABLE. CURRENTLY CALM REQUEST TV TO BE TURNED ON ALL NEEDS MET IN NO DISTRESS.
--- NOTE | 2019-11-29 06:34 | NUR ---
PT AWAKE WATCHING TV. PT EASILY AGITATED, REFUSED LABS THIS MORNING STATING, "NO I DONT WANT IT." PT WAS EDUCATED. REMAINS ON 97% ON RA. IN NO DISTRESS. WILL CONTINUE TO MONITOR.
--- NOTE | 2019-11-29 07:16 | NUR ---
RECEIVED REPORT FROM FARM MACHINERY SET UP MECHANIC RN FOR CONTINUITY OF CARE. PT IS AAOX3, COOPERATIVE AND ABLE TO MAKE NEEDS KNOWN. PT ON RA SATING WELL. PT SKIN INTACT WITH 2 BANDAGES TO LEFT ADB FROM S/P PARACENTESIS ON 11.26. BANDAGES DRY AND INTACT. ADB DISTENDED AND HARD TO TOUCH. PER PT, HE DENIES PAIN. DISCUSSED POC WITH PT AND PT VERBALIZED UNDERSTANDING. WILL ROUND FREQUENTLY ON PT THROUGHOUT THE SHIFT.
--- NOTE | 2019-11-29 07:20 | NUR ---
REPORT GIVEN TO AM RN FOR CONTINUITY OF CARE. PT IS STABLE ALL NEEDS MET. PT WATCHING TV. SPO2 99% RA.
[2019-11-29 08:00] VITALS: BP 141/49
[2019-11-29] MEDS: PANTOPRAZOLE 40 MG INJ VIAL IVP SCH (09:00)
--- NOTE | 2019-11-29 09:40 | NUR ---
ADMINISTERED MORNING MEDS TO PT. PT TOLERATED WELL. ALL NEEDS MET. WILL CONTINUE TO ROUND FREQUENTLY ON PT THROUGHOUT THE SHIFT.
--- NOTE | 2019-11-29 11:12 | NUR ---
PT RESTING IN BED. ALL NEEDS MET.
[2019-11-29] MEDS: NACL 0.9% 1,000 ML IV SCH (11:41)
[2019-11-29 12:00] VITALS: BP 134/52
--- NOTE | 2019-11-29 13:29 | NUR ---
PT ASLEEP. ALL NEEDS MET.
--- NOTE | 2019-11-29 14:25 | NUR ---
RECEIVED CALL FROM PT DAUGHTER MARIANO. PER MARIANO, SHE RECEIVED LETTER FROM [facility] WHERE PT WAS ADMITTED PREVIOUSLY STATING PT TESTED POSITIVE FOR E.COLI AND WAS GIVEN RX FOR RIFAXIMIN 200MG PO BID. I NOTIFIED AND PER PT RECEIVING ABX THERAPY HERE INPATIENT. PT DIARRHEA ALSO SUBSIDED WHICH IS GOOD SIGN. WILL CONTINUE TO ASSESS PT. PT IN STABLE CONDITION AT THIS TIME.
--- NOTE | 2019-11-29 15:38 | NUR ---
PT SLEEPING. ALL NEEDS MET.
[2019-11-29 16:00] VITALS: BP 154/82
--- NOTE | 2019-11-29 17:22 | NUR ---
PT RESTING IN BED. ALL NEEDS MET.
[2019-11-29] MEDS: MAGNESIUM OXIDE 400 MG TAB PO SCH (18:00)
--- NOTE | 2019-11-29 18:49 | NUR ---
WILL ENDORSE PT TO FILTER TANK TENDER HELPER FOR CONTINUATION OF CARE. PT IN STABLE CONDITION AT THIS TIME.
[2019-11-29 20:00] VITALS: BP 124/76
--- NOTE | 2019-11-29 21:00 | NUR ---
VSS. DENIES ANY DISCOMFORT. IV INTACT/PATENT/INFUSING ORDERED. SAFETY MAINTAINED. SR UP X 2. CB IN REACH. ST ON TELE. WILL CONT TO MONITOR PT STATUS.
[2019-11-30] VITALS: BP 126/80
--- NOTE | 2019-11-30 | NUR ---
VSS. NO DISTRESS REPORTED/OBSERVED. IV INTACT/PATENT/INFUSING ORDERED. SAFETY MAINTAINED. SR UP X 2. CB IN REACH. WILL CONT TO MONITOR PT STATUS.
[2019-11-30 04:00] VITALS: BP 128/81
[2019-11-30] MEDS: NACL 0.9% 1,000 ML IV SCH (04:24)
[2019-11-30 06:18] LABS: BASOPHILS % (AUTO) 0.1 % (0.0-2.0); EOSINOPHILS # (AUTO) 0.2 K/uL (0-0.4); EOSINOPHILS % (AUTO) 1.5 % (0.0-4.0); HEMATOCRIT 27.4 % (36-52); HEMOGLOBIN 8.2 g/dL (12.0-18.0); LYMPHOCYTES # (AUTO) 0.4 K/uL (2.0-11.5); MEAN CORPUSCULAR HEMOGLOBIN 22 pg (27-31); MEAN CORPUSCULAR HGB CONC 30 g/dL (33-37); MEAN CORPUSCULAR VOLUME 74.9 fL (80-94); MONOCYTES % (AUTO) 7.1 % (1.7-9.3); NEUTROPHILS # (AUTO) 11.8 K/uL (1.8-7.7); PLATELET COUNT (AUTO) 128 K/uL (140-450); RED BLOOD CELL COUNT(AUTO) 3.66 MIL/uL (4.20-6.10); RED CELL DISTRIBUTION WIDTH 25.3 % (11.6-13.7); WHITE BLOOD COUNT (AUTO) 13.4 K/uL (4.8-10.8)
[2019-11-30 06:50] LABS: ANION GAP 16.2 (8-16); CARBON DIOXIDE 18.2 mmol/L (21-32); CREATININE 1.2 mg/dL (0.6-1.3); POTASSIUM 4.4 mmol/L (3.5-5.1)
[2019-11-30 07:18] LABS: LYMPHOCYTES % (AUTO) 3.3 % (20.5-51.1)
--- NOTE | 2019-11-30 07:30 | NUR ---
RECEIVED PT ASLEEP. NO SOB NOTED. NO C/O PAIN. IV TO LT UPPER ARM PATENT AND INTACT. CHEST, DIMINISHED AIR ENTRY TO THE BASES. ABDOMEN DISTENDED, ACTIVE BOWEL SOUNDS NOTED. WITH WISEMAN DRAINING MODERATE AMOUNTS OF DARK REYES COLORED URINE. BED ON LOW POSITION, WITH 3 SIDE RAILS UP. WILL CONTINUE TO MONITOR PT.
[2019-11-30 08:00] VITALS: BP 122/80
[2019-11-30] MEDS: PANTOPRAZOLE 40 MG INJ VIAL IVP SCH (09:38)
--- NOTE | 2019-11-30 10:30 | NUR ---
PT AWAKE. NO SOB NOTED. NO COMPLAINTS MADE. CARE ENDORSED TO MARCI.
--- NOTE | 2019-11-30 11:30 | NUR ---
PATIENT LYING DOWN IN BED WATCHING TV. NO DISTRESS NOTED. CONDITION UNCHANGED. WILL CONTINUE TO MONITOR.
[2019-11-30 12:00] VITALS: BP 114/76
--- NOTE | 2019-11-30 13:00 | NUR ---
PATIENT SITTING IN BED WITH LUNCH TRAY IN FRONT. CONDITION UNCHANGED. WILL CONTINUE TO MONITOR.
--- NOTE | 2019-11-30 14:47 | NUR ---
SECOND COVID SWAB PERFORMED. PATIENT TOLERATED WELL. WILL CONTINUE TO MONITOR.
[2019-11-30 16:00] VITALS: BP 115/74
--- NOTE | 2019-11-30 16:45 | NUR ---
PATIENT LYING DOWN IN BED SLEEPING, AROUSABLE BY VOICE. NO DISTRESS NOTED. DENIES ANY PAIN. CONDITION UNCHANGED. WILL CONTINUE TO MONITOR.
[2019-11-30] MEDS: MAGNESIUM OXIDE 400 MG TAB PO SCH (18:24)
--- NOTE | 2019-11-30 18:24 | NUR ---
SCHEDULED MEDICATIONS DUE GIVEN. WILL CONTINUE TO MONITOR.
--- NOTE | 2019-11-30 19:30 | NUR ---
GAVE REPORT TO CLOCK ASSEMBLER NURSE FOR CONTINUITY OF CARE. PATIENT IN STABLE CONDITION.
--- NOTE | 2019-11-30 19:31 | NUR ---
RECEIVED PT FROM PREVIOUS SHIFT RN FOR CONTINUITY OF CARE. PT A, A, O X 3, ON BEDREST NO SOB NOTED. NO C/O PAIN. IV TO LT UPPER ARM G 22, TKO PATENT AND INTACT. ABDOMEN DISTENDED, ACTIVE BOWEL SOUNDS NOTED. WITH WISEMAN DRAINING MODERATE AMOUNTS OF DARK REYES COLORED URINE. BED ON LOW POSITION, WITH 2 SIDE RAILS UP. WILL CONTINUE TO MONITOR PT.
[2019-11-30 20:00] VITALS: BP 124/73
--- NOTE | 2019-11-30 21:50 | NUR ---
CHECKED ON IV ON THE LEFT UPPER ARM G 22 NO SWELLING, NO PAIN, PATENT AND INTACT, W/ NS AT TKO
--- NOTE | 2019-11-30 23:12 | NUR ---
PATIENT SITTING IN BED WITH SNACK AND JUICE IN FRONT. PT EATING 50% OF SNACK. WILL CONTINUE TO MONITOR.
[2019-12-01] VITALS: BP 124/81
--- NOTE | 2019-12-01 00:12 | NUR ---
PT TRYING TO SLEEP, DOES NOT WANT THE TV OFF, PLACED THE CALL LIGHT WITHIN EASY REACH
--- NOTE | 2019-12-01 02:19 | NUR ---
SLEEPING NO COMPLAINTS, NO RESPIRATORY DISTRESS, NO COUGHING, NO SOB. WILL CONTINUE TO ROUND FREQUENTLY
[2019-12-01 04:00] VITALS: BP 117/75
--- NOTE | 2019-12-01 04:00 | NUR ---
VITAL SIGNS TAKEN WNL, STABLE, AFEBRILE. ABDOMEN STILL DISTENDED
--- NOTE | 2019-12-01 05:47 | NUR ---
FOUND THE WISEMAN CATHETER ON TOP OF PATIENT'S HEAD,PLACED BACK CATHETER UNDER THE BED, AND CHANGED THE FC SECURING DEVICE. INFORMED THE PATIENT NOT TO TRY TO PULL CATHETER, PT WILL BLEED, AND WE STILL NEED IT TO DRAIN HIS URINE. PT VERBALIZED UNDERSTANDING
[2019-12-01 06:38] LABS: ANION GAP 14.7 (8-16); CARBON DIOXIDE 18.9 mmol/L (21-32); POTASSIUM 4.6 mmol/L (3.5-5.1)
--- NOTE | 2019-12-01 06:45 | NUR ---
PT CLEANED BY MANAGER INTERMEDIATE, MADE COMFORTABLE, STABLE AT THIS TIME. WILL ENDORSE TO NEXT SHIFT FOR CONTINUITY OF CARE.
--- NOTE | 2019-12-01 07:15 | NUR ---
RECEIVED ENDORSEMENT FROM MOVIE EXTRA, AWAKE, ALERT, ORIENTEDX2, BREATHING SPONTANEOUSLY AT ROOM AIR, NOT IN DISTRESS NOTED, WITH IV CANNULA G22 AT LEFT UPPER ARM NOTED, WITH WISEMAN CATHETER DRAINING AN REYES COLOR URINE NOTED, SAFETY MEASURES IN PLACE.
[2019-12-01 08:00] VITALS: BP 156/63
[2019-12-01 08:07] LABS: BASOPHILS # (AUTO) 0.1 K/uL (0.00-0.22); BASOPHILS % (AUTO) 0.6 % (0.0-2.0); EOSINOPHILS # (AUTO) 0.2 K/uL (0-0.4); EOSINOPHILS % (AUTO) 1.4 % (0.0-4.0); HEMOGLOBIN 8.1 g/dL (12.0-18.0); LYMPHOCYTES # (AUTO) 0.6 K/uL (2.0-11.5); LYMPHOCYTES % (AUTO) 3.8 % (20.5-51.1); MEAN CORPUSCULAR HEMOGLOBIN 23 pg (27-31); MEAN CORPUSCULAR HGB CONC 30 g/dL (33-37); MEAN CORPUSCULAR VOLUME 75.2 fL (80-94); NEUTROPHILS # (AUTO) 12.6 K/uL (1.8-7.7); NEUTROPHILS % (AUTO) 87.2 % (42.2-75.2); PLATELET COUNT (AUTO) 149 K/uL (140-450); RED BLOOD CELL COUNT(AUTO) 3.58 MIL/uL (4.20-6.10); RED CELL DISTRIBUTION WIDTH 24.8 % (11.6-13.7); WHITE BLOOD COUNT (AUTO) 14.5 K/uL (4.8-10.8)
[2019-12-01] MEDS: PANTOPRAZOLE 40 MG INJ VIAL IVP SCH (08:46)
--- NOTE | 2019-12-01 09:00 | NUR ---
SITTING BESIDE THE BED AND HAVING HIS BREAKFAST. DUE MEDICATION GIVEN AND SAFETY MEASURES IN PLACE.
[2019-12-01] MEDS ORDERED: SULF-59 PO (10:37)
[2019-12-01] MEDS ORDERED: CEPH250C16 PO (10:37)
[2019-12-01 12:00] VITALS: BP 124/89
--- NOTE | 2019-12-01 12:05 | NUR ---
VITAL SIGNS TAKEN AND RECORDED, WITH IN NORMAL RANGE. APPARENTLY WATCHING TV. SAFETY MEASURES IN PLACE.
--- NOTE | 2019-12-01 14:10 | NUR ---
FOR DISCHARGE TODAY,WAITING FOR THE PLAN OF TELEPHONER.
[2019-12-01 15:15] VITALS: BP 124/89
--- NOTE | 2019-12-01 15:15 | NUR ---
12/01/19 RD INITIAL ASSESSMENT COMPLETED PLEASE REFER TO NUTRITION ASSESSMENT UNDER CARE ACTIVITY FOR ESTIMATED NUTRITIONAL NEEDS. 1. CONTINUE HEPATIC MSC DIET TOLERATED 2. RECOMMEND ENSURE BID 3. RECOMMEND SMALL AND FREQUENT MEALS 4. RD TO FOLLOW-UP 2-3 DAYS, HIGH RISK JACKSON ZARAGOZA, RD
--- NOTE | 2019-12-01 15:15 | NUR ---
[facility] PROFESSIONAL CONTACTED AND THE PATIENT WILL DISCHARGE TO HOME AND THE DAUGHTER WILL PICK HIM UP. TO BE FOLLOWED UP BY [facility] AT HOME.
--- NOTE | 2019-12-01 16:00 | NUR ---
PREPARED FOR DISCHARGE, IV CANNULA REMOVED AND DRESSING APPLIED, NO BLEEDING NOTED. WISEMAN CATHETER KEEP IN PLACE ORDERED BY , WILL FOLLOW UP IN THE CLINIC APPOINTMENT. DISCHARGED PACKET GIVEN AND VERBALIZED UNDERSTANDING.
--- NOTE | 2019-12-01 16:25 | NUR ---
DISCHARGED IN STABLE CONDITION PER WHEELCHAIR ACCOMPANIED TO PRIVATE VEHICLE, BREATHING SPONTANEOUSLY AT ROOM AIR. WISEMAN CATHETER CARE INSTRUCTION GIVEN TO THE DAUGHTER, VERBALIZED UNDERSTANDING. ID WRIST BAND REMOVED AND PROPERLY DISPOSED.
== END 2019-12-01 16:25 | disposition home health service (06) | DRG 871 ==
LOC: MED 01:05 → MTU 05:48
PROVIDERS: ADMIT Hospitalist; ATTEND Hospitalist
PROC: 0W9G3ZZ Drainage of Peritoneal Cavity, Percutaneous Approach (ICD-10-PCS; principal; 2019-11-23)
PROC: 0W9G3ZZ Drainage of Peritoneal Cavity, Percutaneous Approach (ICD-10-PCS; 2019-11-27)
DX: A41.9 Sepsis, unspecified organism (principal); N17.0 Acute kidney failure with tubular necrosis; E43 Unspecified severe protein-calorie malnutrition; K65.2 Spontaneous bacterial peritonitis; N39.0 Urinary tract infection, site not specified; D61.818 Other pancytopenia; R18.8 Other ascites; K76.6 Portal hypertension; D68.9 Coagulation defect, unspecified; D72.825 Bandemia; B96.1 Klebsiella pneumoniae [K. pneumoniae] as the cause of diseases classified elsewhere; K80.20 Calculus of gallbladder without cholecystitis without obstruction; K74.60 Unspecified cirrhosis of liver; K72.90 Hepatic failure, unspecified without coma; B95.61 Methicillin susceptible Staphylococcus aureus infection as the cause of diseases classified elsewhere; I10 Essential (primary) hypertension; Z20.828 Contact with and (suspected) exposure to other viral communicable diseases; E86.0 Dehydration; E83.42 Hypomagnesemia; R65.20 Severe sepsis without septic shock; Z79.899 Other long term (current) drug therapy; Z68.26 Body mass index [BMI] 26.0-26.9, adult
CPT/HCPCS: 36415; 49083; 71045; 76705; 80048; 80053; 80305; 81001; 82140; 82150; 82607; 82728; 82746; 82945; 83036; 83540; 83605; 83615; 83690; 83735; 83880; 84100; 84157; 84443; 84484; 85025; 85045; 85610; 85730; 87040; 87070; 87075; 87081; 87086; 87186; 87205; 88305; 88313; 88342; 89051; 93005; 96361; 96365; 96375; 97110; 97112; 97116; 97530; 99285; C9113; J0696; J2001; J2270; J2405; J2543; J3475; J7030; J7060; Q0092; U0003-CS

== ENCOUNTER 2019-12-01 20:44 | Inpatient (IN) | payer BC, MEDICAID ==
[~2019-12-01] VITALS: Ht 167.6 cm; Wt 67.6 kg
[~2019-12-01 20:44] MED LIST: CEPH250C16 PO; SULF-59 PO
[2019-12-01] MEDS ORDERED: cefTRIAXone 1,000 MG in DEXT 5% MINI-BAG PLUS 50 ML IV ONE (20:50)
--- NOTE | 2019-12-01 20:50 | NUR ---
Note jaye in ED - 12/01/19 at 2338 by VIRY 20 G IV CATH INSERTED IN L A/C , IV FLUSHED W/ 10 CC NS , IV SITE PATENT , NO INFILTRATION, REDNESS, SWELLING OR PAIN NOTED.
--- NOTE | 2019-12-01 20:52 | NUR ---
PT LIV [place]. TAKEN TO BED 4
[2019-12-01] MEDS ORDERED: cefTRIAXone 1,000 MG VIAL ONE (20:54)
--- NOTE | 2019-12-01 20:55 | NUR ---
20 G IV CATH INSERTED IN L A/C , IV FLUSHED W/ 10 CC NS , IV SITE PATENT , NO INFILTRATION, REDNESS, SWELLING OR PAIN NOTED.
--- NOTE | 2019-12-01 20:55 | NUR ---
BLOOD LABS COLLECTED AND HANDED TO LAB.
[2019-12-01 21:00] VITALS: BP 110/73
--- NOTE | 2019-12-01 21:00 | NUR ---
68 Y/O MALE BIBA C/O ADB PAIN & ABD DISTENTION. PT WAS D/C FROM [facility] TODAY - PRIOR DX PERITONITIS. PT ABD DISTENTED, FIRM AND NONTENDER. PT C/O ABD PAIN 11/23. PT WISEMAN INSERTED PRIOR TO ER ARRIVAL , 20 ML URINE OUTPUT NOTED. PT AWAKE , AAOx1 (to name only), ABLE TO FOLLOW COMMANDS , RR EVEN AND UNLABORED. PT RESTING IN BED, LOCKED AND IN LOWEST POSITION, HOB ELEVATED, SIDE RAIL X2 FOR PT SAFETY. VISIBLE RISE AND ALL OF CHEST , RR EVEN AND UNLABORED, SAO2 97%. VSS. PMH: HTN , CIRRHOSIS NKA
--- NOTE | 2019-12-01 21:08 | NUR ---
EKG PERFORMED AT BEDSIDE
--- NOTE | 2019-12-01 21:14 | NUR ---
Dr. Palacios examining patient.
[2019-12-01] MEDS ORDERED: ACETAMINOPHEN EXTRA STRENGTH 500 MG TAB PO ONE (21:15)
[2019-12-01 21:19] LABS: BASOPHILS # (AUTO) 0.1 K/uL (0.00-0.22); BASOPHILS % (AUTO) 0.7 % (0.0-2.0); EOSINOPHILS # (AUTO) 0.1 K/uL (0-0.4); EOSINOPHILS % (AUTO) 0.5 % (0.0-4.0); HEMATOCRIT 29.9 % (36-52); HEMOGLOBIN 8.8 g/dL (12.0-18.0); LYMPHOCYTES # (AUTO) 0.6 K/uL (2.0-11.5); LYMPHOCYTES % (AUTO) 3.3 % (20.5-51.1); MEAN CORPUSCULAR HEMOGLOBIN 22 pg (27-31); MEAN CORPUSCULAR HGB CONC 30 g/dL (33-37); MEAN CORPUSCULAR VOLUME 74.8 fL (80-94); MONOCYTES % (AUTO) 5.5 % (1.7-9.3); NEUTROPHILS # (AUTO) 16.8 K/uL (1.8-7.7); PLATELET COUNT (AUTO) 251 K/uL (140-450); RED BLOOD CELL COUNT(AUTO) 3.99 MIL/uL (4.20-6.10); RED CELL DISTRIBUTION WIDTH 25.9 % (11.6-13.7); WHITE BLOOD COUNT (AUTO) 18.7 K/uL (4.8-10.8)
[2019-12-01] MEDS ORDERED: MORPHINE SULFATE 4 MG/ML SYR IVP ONE (21:20)
--- NOTE | 2019-12-01 21:42 | NUR ---
X-Ray at bedside.
[2019-12-01 22:10] LABS: APPEARANCE,URINE SL CLOUDY (CLEAR); BILIRUBIN,URINE 1+ (NEGATIVE); BLOOD, URINE TRACE-I (NEGATIVE); COLOR,URINE DARK YELLOW (YELLOW); LEUKOCYTE ESTERASE ,URINE 2+ (NEGATIVE); NITRITE, URINE NEGATIVE (NEGATIVE); PH,URINE 5.5 (5.0-9.0); UGLUCOSE NEGATIVE (NEGATIVE)
[2019-12-01 23:45] LABS: ALBUMIN 1.6 g/dL (3.4-5.0); ANION GAP 21.6 (8-16); CARBON DIOXIDE 14.6 mmol/L (21-32); CREATININE 1.8 mg/dL (0.6-1.3); POTASSIUM 5.2 mmol/L (3.5-5.1); TOTAL BILIRUBIN 1.8 mg/dL (0.0-1.0)
[2019-12-01 23:46] LABS: WBC,URINE 20-60 /HPF (0-5); YEAST,URINE Many /HPF (None Seen)
--- NOTE | 2019-12-02 00:30 | NUR ---
PT RESTING IN BED, LOCKED AND IN LOWEST POSITION , AROUSABLE TO VERBAL STIMULATION, HOB ELEVATED , SIDE RAIL X2 FOR PT SAFETY. RR EVEN AND UNLABORED, SAO2 97%. VSS.
--- NOTE | 2019-12-02 01:15 | NUR ---
SPOKE W/ MARIANO , PT DAUGHTER , ON UPDATE OF PT STATUS.
[2019-12-02] MEDS ORDERED: ACETAMINOPHEN 325 MG TAB PO PRN (01:45)
[2019-12-02] MEDS ORDERED: ONDANSETRON 4 MG/2 ML VIAL IVP PRN (01:45)
[2019-12-02] MEDS ORDERED: DOCUSATE SODIUM 100 MG GELCAP PO PRN (01:45)
--- NOTE | 2019-12-02 02:00 | NUR ---
# 16 FR Robertson catheter with 10 ml utilizing sterile technique. Immediate return of 5 ml YELLOW / CLOUDY urine noted. Bedside drainage bag placed below level of bladder. Pt tolerated procedure WELL.
--- NOTE | 2019-12-02 02:25 | NUR ---
PT PULLED OUT L A/C 20 G IV - IV CATH INTACT , NO REDNESS , SWELLING OR PAIN NOTED AT IV SITE.
--- NOTE | 2019-12-02 03:10 | NUR ---
Patient will be admitted to care of . Admited to [facility]. Will go to room 112B. Belongings list completed. Report to TROY LINDA.
[2019-12-02 03:35] VITALS: BP 108/69
--- NOTE | 2019-12-02 03:35 | NUR ---
PATIENT ARRIVED ON FLOOR AT 0310. RECEIVED REPORT FROM MADDI SIMMONS. PT IS RESTING COMFORTABLY IN BED. SPEECH CLEAR. AAOX2 SELF, TIME. RESPIRATIONS ARE EQUAL AND UNLABORED ON ROOM AIR SAT WELL 94%. PT WITH IV ON R BAUMANN 24G SL. IV WRAPPED D/T PT REMOVING LINES. SKIN IS INTACT. ABD DISTENDED LARGE. DX:ASCITES AND INTRACTABLE ABD PAIN. PT WITH WISEMAN CATH CHANGED TODAY IN ER. NOTED WITH SMALL AMOUNT OF LIGHT ORANGE URINE. MRSA SWAB OBTAINED. ORIENTED PT TO ROOM, STAFF AND CALL LIGHT. ATTEMPT TO OBTAIN ADMISSION ASSESSMENT BUT, PT IS UNCOOPERATIVE STATES, " I WANT TO SLEEP, NOT RIGHT NOW." INFORMATION OBTAINED FROM LAST ADMISSION PT WAS JUST D/C YESTERDAY. POC DISCUSSED WITH PT. BED ALARM ON. CALL LIGHT IS WITHIN REACH. WILL ROUND FREQUENTLY.
--- NOTE | 2019-12-02 05:00 | NUR ---
ASSISTED WAGON DRIVER WITH CHANGING PATIENT. PT WAS CLEANED AND REPOSITION FOR COMFORT. PT SKIN IS INTACT. PT STATES HAD PARACENTESIS A FEW DAYS AGO BAND-AID ON STOMACH NOTED. STOMACH BOWEL SOUNDS ACTIVE X4 LBM PT DOES NOT REMEMBER. WISEMAN CATH INTACT. SAFETY MEASURES ARE IN PLACE. WILL CONTINUE TO MONITOR.
[2019-12-02 06:00] LABS: HEMATOCRIT 28.2 % (36-52); HEMOGLOBIN 8.3 g/dL (12.0-18.0); MEAN CORPUSCULAR HEMOGLOBIN 22 pg (27-31); MEAN CORPUSCULAR HGB CONC 29 g/dL (33-37); PLATELET COUNT (AUTO) 210 K/uL (140-450); RED BLOOD CELL COUNT(AUTO) 3.71 MIL/uL (4.20-6.10); RED CELL DISTRIBUTION WIDTH 25.2 % (11.6-13.7)
[2019-12-02 06:24] LABS: ANION GAP 17.7 (8-16); CREATININE 1.9 mg/dL (0.6-1.3)
[2019-12-02 06:31] LABS: POTASSIUM 5.7 mmol/L (3.5-5.1)
--- NOTE | 2019-12-02 06:45 | NUR ---
PAGED DR. HODGES CRITICAL K 5.7 PER MD WILL COME IN TO ASSESS PT.
[2019-12-02] MEDS ORDERED: ALBUTEROL SULFATE/IPRATROPIU 3 ML SOL IH PRN (07:10)
--- NOTE | 2019-12-02 07:20 | NUR ---
GAVE BEDSIDE REPORT TO DAY RN. PT ENDORSED IN STABLE CONDITION.
--- NOTE | 2019-12-02 07:20 | NUR ---
RECEIVED PATIENT FROM NIGHT NURSE. PATIENT IS RESTING COMFORTABLY IN BED. NOTED ASCITE TO ABD, FIRM TO TOUCH. SKIN IS WARM TO TOUCH. RESP EVEN AND UNLABORED, DENIES OF ANY PAIN OR DISTRESS. RH [address] SAFETY MEASURES IN PLACE. PLAN OF CARE DISCUSSED WITH PATIENT. PATIENT VERBALIZED UNDERSTANDING. WILL CONTINUE TO MONITOR.
[2019-12-02 08:00] VITALS: BP 112/66
[2019-12-02 08:30] LABS: WHITE BLOOD COUNT (AUTO) 27.1 K/uL (4.8-10.8)
[2019-12-02 08:31] LABS: LYMPHOCYTES % (MANUAL) 2 % (20-46); MONOCYTES % (MANUAL) 2 % (5-12)
--- NOTE | 2019-12-02 09:25 | NUR ---
PATIENT HAS BEEN SCREENED AND CATEGORIZED MODERATE NUTRITION RISK. PATIENT WILL BE SEEN WITHIN 3-5 DAYS OF ADMISSION. 12/04/19 12/06/[address]
[2019-12-02] MEDS: MEROPENEM 1,000 MG in NACL 0.9% 100 ML IV SCH ×2 (09:59→21:49)
--- NOTE | 2019-12-02 10:15 | NUR ---
MORNING ROUTINE MEDICATION GIVEN ORDERED. PATIENT LAYING ON HIS LEFT SIDE AND TOLERATING WELL. DENIES OF PAIN AT THIS TIME. ABLE TO MAKE NEEDS KNOWN. ALERT AND ORIENTED X2. SAFETY MEASURES IN PLACE. CALL LIGHT WITHIN REACH. WILL CONTINUE TO MONITOR.
--- NOTE | 2019-12-02 12:15 | NUR ---
DC PLANNIN YRS OLD MALE PATIENT WAS ADMITTED FROM HOME WITH A DX OF INTRACTABLE ABDOMINAL PAIN AND ASCITES. PT HAS A HX OF CIRRHOSIS AND HYPERTENSION. PT WAS DISCHARGED HOME YESTERDAY. PT HAS BEEN REFUSED TO GO TO SNF. CONSULTED WITH DR LIMON UROLOGIST FOR DIFFICULTY URINATION, PER DR HODGES PATIENT IS AGREE TO GO TO SNF . DC PLAN TO GO TO SNF FAXED TO Dr. TATTOFF Chen TO FOLLOW. Addendum: 12/03/19 at 0930 by Rolanda Castro CM RECEIVED ORDER FOR SNF FOR PT. FAXED CLINICALS TO [facility] [place]. FAX [phone]/ [phone] PHONE NUMBER [phone] Addendum: 12/03/19 at 1201 by Rolanda Castro CM CONTACTED [facility] [phone]. TRIED EXT [phone]. NO ANSWER LEFT A VOICEMAIL FOR COORDINATOR SEAN. Addendum: 12/03/19 at 1406 by Rolanda Castro CM FOLLOWED UP WITH [facility] [phone] SHE STATED THAT THEY HAVE RECEIVED FAX AND SEAN WILL BE REACHING OUT TO US SHORTLY Addendum: 12/04/19 at 1200 by Rolanda Castro CM FOLLOWED UP WITH SEAN [phone] [phone]. NO ANSWER BUT LEFT A VOICEMAIL FOR HER TO RETURN MY CALL. Addendum: 12/04/19 at 1407 by Rolanda Castro CM SEAN RETURNED MY CALL. I LET HER KNOW THAT [facility] MIGHT BE ABLE TO ACCEPT PATIENT SHE IS GOING TO REACH OUT TO THEM. I ASKED HER IF SHE IS ABLE TO E-MAIL ME A LIST OF CONTRACTED SNFS Addendum: 12/04/19 at 1448 by Rolanda Castro CM SPOKE TO THE PATIENTS DAUGHTER MARIANO SHE REQUESTED THAT WE FIND A SNF CLOSET TO [place] THAT WE CAN. SHE STATED THAT SHE MAY WANT TO TAKE THE PATIENT HOME WHEN HE IS READY FOR DISCHARGE SHE DOES NOT FEEL COMFORTABLE WITH PATIENT GOING TO A SNF. Addendum: 12/04/19 at 1518 by Rolanda Castro CM FAXED PATIENTS CLINICALS TO [facility] [phone] AND [facility] [phone]. THEY ARE ACCEPTING PATIENTS AT THIS TIME AND WILL REVIEW CLINICALS. Addendum: 12/05/19 at 1051 by Rolanda Castro CM FOLLOWED UP WITH SEAN [phone] EXT [phone] TO NOTIFY HER [facility] HAS ACCEPTED PATIENT. PER CHIKI AT [facility] PATIENT WILL GO TO ROOM [address] H[address]. Addendum: 12/05/19 at 1110 by Rolanda Castro CM SEAN WILL PROVIDED CEC WITH [facility]. RECEIVED AUTH FOR TRANSPORTATION #[id number]. SPOKE TO DR. DUONG TO NOTIFY HER WE HAVE AN ACCEPTING FACILITY SHE STATED PATIENT IS NOT READY FOR D/C TODAY MOST LIKELY THIS WEEKEND. Addendum: 12/07/19 at 1056 by Chel Sanchez CM LATE ENTRY FOR TODAY: RECEIVED AN ORDER FOR HIGHER LEVEL OF TRANSFER. CONTACTED Dr. TATTOFF AT [phone] OPT 3, ABLE TO SPEAK TO GLORIA WARREN VC REP. PER GLORIA THEY DO NOT HAVE AN HOLLOW TILE PARTITION ERECTOR FINANCIAL SYSTEMS DIRECTOR AND THEY ONLY HAVE AN HOLLOW TILE PARTITION ERECTOR NURSE FOR EMERGENT TRANSPORTATION AND JUST HANG UP ON ME. REFERRAL SENT TO [facility] AND [facility]. RECEIVED A CALL FROM TAVO OF [facility] TO GATHER MORE INFORMATION. ALL INFORMATION NEEDED PROVIDED. PROVIDED HER OF DR. JORDAN AND DR. BETANCUR'S CELL PHONE NUMBERS. RECEIVED A CALL FROM PATRICIO OF [facility], STATING THAT THEY DO NOT HAVE BEDS AVAILABLE AT THIS TIME HOWEVER WILL KEEP THE PATIENT ON THEIR LIST. Addendum: 12/07/19 at 1532 by Chel Sanchez CM CONTACTED [facility] TO FOLLOW UP. ABLE TO SPEAK TO SUSAN. JEFFY DAVIS, THEY ARE NOT CONTRACTED WITH [facility]. Addendum: 12/08/19 at 0839 by Chel Sanchez CM RECEIVED A CALL FROM VAHE ZHANG OF [facility] [place], CONFIRMING THAT THEY RECEIVED THE ORDER AND CLINICALS. INFORMED HER THAT [facility] IS NOT ABLE TO ACCEPT THE PATIENT DUE TO BED AVAILABILITY AND [facility] DUE TO THEY ARE NOT CONTRACTED WITH [facility]. SHE STATED THAT SHE WILL FIND OUT WHICH HOSPITALS THEY ARE CONTRACTED WITH AND WILL CALL ME BACK. WILL FOLLOW UP. Addendum: 12/08/19 at 1148 by Chel Sanchez CM CONTACTED VAHE DESOUZA [facility] AT [phone] REGARDING ORDER FOR HLOC TRANSFER. SHE STATED THIS MEMBER IS NOT SHOWING ON THEIR SYSTEM. INFORMED HER THAT THEY ARE THE SECONDARY AND PRIMARY IS [facility]. SHE STATED TO CONTACT [facility]. CONTACTED VAHE ZHANG OF [facility] AT [phone] TO FOLLOW UP ON THE CONTRACTED HOSPITALS, NO ANSWER. LEFT MESSAGE. WILL FOLLOW UP. Addendum: 12/08/19 at 1213 by Chel Sanchez CONTACTED VAHE SEAN [facility] AT [phone] REGARDING HLOC TRANSFER. PER VAHE ESTRADA, THIS IS OUT OF AREA AND IS CARVED OUT TO THE HEALTH PLAN. INFORMED HER THAT VAHE ZHANG WAS THE ONE WHO TOLD US TO REACH OUT TO HER. SHE STATED THAT IF BX WILL PROVIDE THEM THE AUTH, THEY CAN AID IN FINDING THE FACILITY. SHE ALSO STATED IF PATIENT IS NEEDING TERTIARY LEVEL TRANSFER, THEY ARE CONTRACTED WITH [facility] AND [facility]. I INFORMED HER THAT WHILE WAITING FOR VAHE ZHANG OF TO CALL ME BACK, I WILL SEND IT TO [facility] AND [facility]. I ALSO INQUIRED IF IN ANY CASE [facility] AND [facility] ARE NOT ABLE TO ACCEPT, CAN I SEND THE REFERRAL TO [facility]. PER VAHE ESTRADA, THEY ARE NOT CONTRACTED WITH [facility] HOWEVER WE HAVE TO GO WITH THE ROUTE, WE JUST NEED AN ROBERTO WITH BX. Addendum: 12/08/19 at 1214 by Chel Sanchez CM REFERRAL SENT TO [facility] [phone] AND [facility] [phone]. WILL FOLLOW UP. Addendum: 12/08/19 at 1231 by Chel Sanchez PER FAX CONFIRMATION, UNABLE TO PROCESS, LINE IS BUSY FOR [facility]. CONTACTED [facility] TRANSFER CENTER AT [phone], ABLE TO SPEAK TO PER MIGUE THEIR PROCESS IS TO CALL THEM FIRST AND PROVIDE PATIENT'S INFORMATION BEFORE YOU CAN SEND THE PAPERWORKS. THEY DO NOT ACCEPT ANY FAXES BECAUSE THEY RECEIVE A LOT OF FAXES FROM THE [facility] AND IF THEY RECEIVE A FAX THAT THEY ARE NOT AWARE OF, IT GOES IN THE TRASH AND WILL NEVER GET REVIEWED. PROVIDED HIM OF THE PATIENT'S INFORMATION. HE PROVIDED ME WITH THE FAX NUMBER [phone]. REFERRAL SENT TO THE PROVIDED NUMBER. WILL FOLLOW UP. Addendum: 12/08/19 at 1318 by Chel Sanchez RECEIVED A CALL FROM ALBERT OF [facility], TO GATHER MORE INFORMATION REGARDING THIS PATIENT. ALL INFORMATION NEEDED PROVIDED. I ALSO PROVIDED HER OF DR. BETANCUR'S AND DR. HODGES'S PHONE NUMBERS. SHE STATED SHE WILL REACH OUT TO THEIR PHYSICIAN AND WILL CALL ME BACK ONCE THEY HAVE AN ACCEPTING DOCTOR. SHE STATED THAT THEY WILL BE NEEDING A TRANSFER BACK AGREEMENT. PROVIDED HERE OF THE FAX NUMBER TO SEND THE FORM. WILL FOLLOW UP. Addendum: 12/08/19 at 1519 by Johanna Diego NM PLANNING: CALLED [facility] [phone] SPOKE WITH ASAD GARNER DENIED THE CASE NO INDICATION FOR SURGERY WILL CALL BACK FOR THE FINAL RESULT. RECEIVED A CALL FROM [facility] [employer] [place] PROVIDED PT'S INSURANCE VAHE SOTO'S NUMBER , STILL REVIEWING THE CASE AND LOOKING FOR ACCEPTING DRChen COTTER TO FOLLOW Addendum: 12/08/19 at 1537 by Johanna Diego CM DC PLANNING: CALLED [facility] SPOKE WITH ALBERT PROVIDE HER THE MELD SCORE 18 POINTS ,SHE WILL PROVIDE IT TO THE ACCEPTING MD AND WILL CALL BACK. VAHE TO FOLLOW Addendum: 12/09/19 at 1217 by Chel Sanchez CM RECEIVED A CALL FROM ROWAN OF [facility] TRANSFER [place], INQUIRING IF WE ARE STILL NEEDING A BED. INFORMED HER THAT PATIENT WILL BE DISCHARGING TO SNF INSTEAD. PER ROWAN SHE WILL CLOSE THE CASE THEN. VAHE HERRERA MADE AWARE. Addendum: 12/09/19 at 1323 by Rolanda Castro D/C PLANNING: PER CHIKI AT [facility] PATIENT CAN GO TO ROOM 49 C Addendum: 12/09/19 at 1357 by Forrest Coleman SS [employer] SPOKE TO JARED, SOFTWARE QUALITY MANAGER FROM [facility]. JARED ASKED QUESTIONS REGARDING SUPPORT SYSTEM. ZACHERY PROVIDED JARED APPROPRIATE INFORMATION. JARED REQUESTED CONTACT INFORMATION TO MARIANO COSME [phone]. JARED STATED SHE NEEDED TO COMPLETE ASSESSMENT WITH JARED. NO FURTHER NEEDS IDENTIFIED. Addendum: 12/09/19 at 1412 by Rolanda Castro CM DC PLANNING: SPOKE TO PATIENTS DAUGHTER MARIANO REGARDING ACCEPTING SNF SHE STATED THAT SHE HAS NOT RECEIVED A CALL REGARDING THIS LAST SHE WAS MADE AWARE OF THAT PATIENT WAS SUPPOSED TO BE TRANSFERRED TO ANOTHER HOSPITAL FOR SURGERY. I LET HER KNOW WE WILL HAVE THE DOCTOR REACH OUT TO HER. Addendum: 12/09/19 at 1510 by Rolanda Castro CM PER DR. HODGES HE SPOKE TO THE PATIENTS DAUGHTER SHE IS AGREEABLE TO HER FATHER GOING TO SNF. REACHED OUT TO MARIANO TO NOTIFY HER THAT I WILL BE SETTING UP TRANSPORTATION FOR HER FATHER. CONTACTED CALL THE CAR [phone] CONTRACTED WITH [place] [facility] SPOKE WITH [employer] # [phone]. THEY WILL BE CONTACTING ME SHORTLY WITH ETA Addendum: 12/09/19 at 1515 by Rolanda Castro CM D/C PLANNING: NOTIFIED TROY SAEED THAT PATIENT WILL BE DISCHARGING TODAY. Addendum: 12/09/19 at 1555 by Rolanda Castro CM RECEIVED A CALL FROM CHIKI AT [facility]. THEY ARE PENDING AUTH FROM INSURANCE. CONTACTED [facility] AND LEFT VOICE MAIL FOR SEAN [phone] Addendum: 12/09/19 at 1558 by Rolanda Castro CM D/C PLANNING: CALL THE CAR CONTRACTED WITH [facility]ISA GONZALEZ WAS NOT ABLE TO PROVIDE AUTH FOR TRANSPORTATION. PER EDDIE WE ARE ABLE TO USE [facility] FOR TRANSPORTATION Addendum: 12/09/19 at 1614 by Rolanda Castro CM TRANSPORTATION FOR PATIENT HAS BEEN SET UP WITH [facility] [phone] FOR 7:30 PM.
--- NOTE | 2019-12-02 13:49 | NUR ---
PATIENT RESTING IN BED COMFORTABLY. NO NOTED DISTRESS. AROUSABLE TO NAME. PATIENT IS ABLE TO MAKE NEEDS KNOWN. ATE VERY LITTLE OF LUNCH. FLUIDS GIVEN. DENIES OF PAIN AT THIS TIME. CALL LIGHT WITHIN REACH. WILL CONTINUE TO MONITOR.
--- NOTE | 2019-12-02 15:50 | NUR ---
PATIENT IS SLEEPING COMFORTABLY IN BED. RESP EVEN AND UNLABORED. NO NOTED DISTRESS. WILL CONTINUE TO MONITOR.
[2019-12-02 16:00] VITALS: BP 107/77
--- NOTE | 2019-12-02 17:50 | NUR ---
PATIENT WAS ASSISTED WITH HIS DINNER. PATIENT ATE 20% AND FLUIDS GIVEN ALONG WITH OJ. PATIENT TOLERATED WELL.
--- NOTE | 2019-12-02 19:25 | NUR ---
ENDORSED PATIENT TO NIGHT NURSE. PATIENT IN STABLE CONDITION.
--- NOTE | 2019-12-02 19:26 | NUR ---
RECEIVED BEDSIDE REPORT FROM DAY RN. PT IS AAOX2. RESPIRATIONS ARE EQUAL AND UNLABORED ON ROOM AIR. C/C ABD PAIN DENIES ANY PAIN AT THIS TIME. DX ASCITES ABD LARGE AND DISTENDED. BOWEL SOUNDS ARE ACTIVE X4. PT WITH WISEMAN CATH WITH MINIMAL URINE NOTED. PER DAY RN OUTPUT WAS 50CC. K 5.7 MD IS AWARE. PT WITH UTI AND IV ABX. POC DISCUSSED WITH PT. CALL LIGHT IS WITHIN REACH. WILL CONTINUE TO MONITOR.
--- NOTE | 2019-12-02 20:48 | NUR ---
IV ABX NOW INFUSING PER ORDERS. ADMINISTERED PRN NORCO FOR GEN WEAKNESS / PT TOLERATED. MED EDUCATION GIVEN. ALL NEEDS MET. CALL LIGHT IS WITHIN REACH.
[2019-12-02] MEDS: HYDROcodone/APAP 5/325 MG 1 TAB TAB PO PRN (20:49)
--- NOTE | 2019-12-02 22:30 | NUR ---
ROUND MADE. PT IS SLEEPING COMFORTABLY IN BED WITH EYES CLOSED. CHEST RISE AND FALL NOTED.
[2019-12-03] VITALS: BP 122/64
--- NOTE | 2019-12-03 | NUR ---
VITAL SIGNS ARE WITHIN NORMAL LIMITS. PT WAS REPOSITION FOR COMFORT. SAFETY MEASURES ARE IN PLACE. CALL LIGHT IS WITHIN REACH. WILL CONTINUE TO MONITOR.
--- NOTE | 2019-12-03 02:30 | NUR ---
PT IS SLEEPING COMFORTABLY IN BED WITH EYES CLOSED. CHEST RISE AND FALL NOTED. CALL LIGHT IS WITHIN REACH.
--- NOTE | 2019-12-03 04:18 | NUR ---
PT SLEEPING IN BED W/ EYES CLOSED. CHEST RISE AND FALL NOTED. CALL LIGHT WITHIN REACH. WILL CONT TO MONITOR.
[2019-12-03] MEDS: HYDROcodone/APAP 5/325 MG 1 TAB TAB PO PRN (06:22)
--- NOTE | 2019-12-03 06:38 | NUR ---
PT HAS C/O OF PAIN AT THE STOMACH SITE W/ A PAIN SCLAE OF 6/10. NOTED MOANING AND FACIAL GRIMACING, ADMINISTERED PRN NORCO ORDERED. WILL RE-ASSESS AFTER AN HOUR.
--- NOTE | 2019-12-03 07:27 | NUR ---
RE-ASSESSED PAIN, PT STATED 05/26. PT COMFORTABLY RESTING IN BED. ALL NEEDS MET. CALL LIGHT WITHIN REACH. PT ENDORSED TO AM RN IN STABLE CONDITION.
[2019-12-03 08:00] VITALS: BP 125/75
--- NOTE | 2019-12-03 08:00 | NUR ---
Received report from PM RN. Pt laying in bed sleeping, arousable to name, AOx2 (name, place) but lethargic, skin normal color warm and dry, mild jaundice on eyes, rr even and unlabored. Pt denies CP/SOB, n/v at this time. Pt reports diffuse abd pain that is tolerable. Lung sounds clear BL. BS active x4, abd firm round large ascitic and tender to touch diffusely.
[2019-12-03] MEDS: MEROPENEM 1,000 MG in NACL 0.9% 100 ML IV SCH ×2 (09:09→22:09)
[2019-12-03 10:35] LABS: HEMATOCRIT 28.4 % (36-52); HEMOGLOBIN 8.3 g/dL (12.0-18.0); MEAN CORPUSCULAR HEMOGLOBIN 22 pg (27-31); MEAN CORPUSCULAR HGB CONC 29 g/dL (33-37); MEAN CORPUSCULAR VOLUME 75.5 fL (80-94); PLATELET COUNT (AUTO) 228 K/uL (140-450); RED BLOOD CELL COUNT(AUTO) 3.75 MIL/uL (4.20-6.10); RED CELL DISTRIBUTION WIDTH 25.3 % (11.6-13.7); WHITE BLOOD COUNT (AUTO) 20.4 K/uL (4.8-10.8)
[2019-12-03 10:45] LABS: ANION GAP 13.6 (8-16); CARBON DIOXIDE 20.7 mmol/L (21-32); CREATININE 1.7 mg/dL (0.6-1.3); POTASSIUM 5.3 mmol/L (3.5-5.1)
[2019-12-03 10:51] LABS: LYMPHOCYTES % (MANUAL) 3 % (20-46); MONOCYTES % (MANUAL) 7 % (5-12)
--- NOTE | 2019-12-03 12:00 | NUR ---
Pt laying in bed sleeping, arousable to name, no change in previous neuro exam, skin normal color warm and dry, rr even and unlabored. Pt denies CP/SOB, n/v at this time. Reports tolerable abd pain. Lung sounds clear BL. BS active x4, abd firm round large ascitic and tender to touch diffusely.
--- NOTE | 2019-12-03 15:06 | NUR ---
Received call from pt's family Laure, updated on plan of care. Dr Banks notified to call pt's family Laure [phone]
[2019-12-03 16:00] VITALS: BP 122/85
--- NOTE | 2019-12-03 16:20 | NUR ---
Called Dr Banks, asked if HIDA scan is needed for patient due to US Abdomen report showing cholelithiasis and recommending HIDA scan if clinically indicated. Per Dr Banks, HIDA scan not needed at this time.
--- NOTE | 2019-12-03 16:53 | NUR ---
HIDA scan ordered for pt, pt taken to HIDA scan via gurney at this time.
--- NOTE | 2019-12-03 18:28 | NUR ---
HIDA scan tech requested 2mg morphine IVP at this time for scan. Called Dr Banks, received TORB for 2mg morphine IVP at this time, administered to pt while having HIDA scan.
[2019-12-03] MEDS ORDERED: MORPHINE SULFATE 2 MG/ML SYR IVP SCH (18:30)
--- NOTE | 2019-12-03 19:03 | NUR ---
Pt back from [facility] scan via [facility] at this time.
--- NOTE | 2019-12-03 19:15 | NUR ---
Transfer of care to Martha ROSALES
--- NOTE | 2019-12-03 19:16 | NUR ---
RECD. RESTING IN BED, AWAKE, A/OX1. RESPIRATION EVEN AND UNLABORED. IV OF NS AT TKO, RIGHT HAND G24. REORIENTED TO HOSPITAL SETTING. ABDOMEN FIRM AND ASCITIC. F/C PATENT DRAINING CLOUDY YELLOW LIGHT BROWNISH URINE. SAFETY MEASURES ENFORCED. BED IN THE LOWEST POSITION, BED ON ALARM. PLAN OF CARE DISCUSSED. NEEDS REINFORCEMENT. NO APPEARANCE OF PAIN NOTED 0/10.
[2019-12-04] MEDS ORDERED: VANCOMYCIN PER PHARMACY MC PRN (00:50)
[2019-12-04] MEDS: HYDROcodone/APAP 5/325 MG 1 TAB TAB PO PRN ×4 (01:51→23:14)
[2019-12-04] MEDS: FLUCONAZOLE 200 MG/NS PREMIX 100 ML IV SCH (03:00)
--- NOTE | 2019-12-04 03:25 | NUR ---
SLEEPING COMFORTABLY IN BED, AFTER AN HOUR AFTER PAIN MEDICATION GIVEN.
--- NOTE | 2019-12-04 04:30 | NUR ---
Patient's Plan of Care was discussed and reviewed with HEALTH SAFETY SPECIALIST: GABRIELA PUCKETT
--- NOTE | 2019-12-04 05:00 | NUR ---
GIVEN WARM BLANKETS AND MADE COMFORTABLE IN BED.
[2019-12-04] MEDS: MEROPENEM 1,000 MG in NACL 0.9% 100 ML IV SCH ×3 (06:29→21:28)
--- NOTE | 2019-12-04 06:29 | NUR ---
COVERING IVF FOR GABRIELA,R/O SEPSIS
--- NOTE | 2019-12-04 07:00 | NUR ---
CONDITION REMAIN STABLE. WILL ENDORSE TO AM SHIFT NURSE FOR CONTINUITY OF CARE.
[2019-12-04 07:27] LABS: BASOPHILS % (AUTO) 0.2 % (0.0-2.0); EOSINOPHILS # (AUTO) 0.2 K/uL (0-0.4); EOSINOPHILS % (AUTO) 1.2 % (0.0-4.0); HEMATOCRIT 27.1 % (36-52); HEMOGLOBIN 7.9 g/dL (12.0-18.0); LYMPHOCYTES # (AUTO) 0.6 K/uL (2.0-11.5); MEAN CORPUSCULAR HEMOGLOBIN 22 pg (27-31); MEAN CORPUSCULAR HGB CONC 29 g/dL (33-37); MEAN CORPUSCULAR VOLUME 75.7 fL (80-94); MONOCYTES # (AUTO) 1.3 K/uL (0.8-1.0); MONOCYTES % (AUTO) 8.2 % (1.7-9.3); NEUTROPHILS # (AUTO) 13.2 K/uL (1.8-7.7); NEUTROPHILS % (AUTO) 86.4 % (42.2-75.2); PLATELET COUNT (AUTO) 204 K/uL (140-450); RED BLOOD CELL COUNT(AUTO) 3.58 MIL/uL (4.20-6.10); RED CELL DISTRIBUTION WIDTH 25.1 % (11.6-13.7); WHITE BLOOD COUNT (AUTO) 15.3 K/uL (4.8-10.8)
--- NOTE | 2019-12-04 07:30 | NUR ---
RECEIVED REPORT FROM [facility] NURSE, ASSUMED CARE. PT RESTING COMFORTABLY WITH NO S/S OF PAIN AND/OR DISTRESS AT THIS TIME. PERSONAL BELONGINGS, BEDSIDE TABLE, CALL LIGHT WITHIN REACH. WILL CONTINUE TO MONITOR.
[2019-12-04 07:59] LABS: ANION GAP 16.5 (8-16); CARBON DIOXIDE 19.3 mmol/L (21-32); CREATININE 1.7 mg/dL (0.6-1.3); POTASSIUM 5.8 mmol/L (3.5-5.1)
[2019-12-04 08:00] VITALS: BP 114/69
[2019-12-04] MEDS ORDERED: VANCOMYCIN 1,000 MG in DEXTROSE 5% 250 ML IV SCH (09:00)
[2019-12-04] MEDS ORDERED: SODIUM ZIRCONIUM CYCLOSILICATE 10 GM POWD.PACK PO SCH (09:30)
--- NOTE | 2019-12-04 10:23 | NUR ---
CREDIT PRODUCTS OFFICER NOTE: Patient's Orientation Unable To Assess Information Provided By MARIANO COSME - DAUGHTER Comments SW WAS UNABLE TO MEET PATIENT. Cardiopulmonary Supervisor, Realtionship and Phone Number MARIANO COSME DAUGHTER [phone] Healthcare Power of Head Stock Transfer Clerk No Does Patient Have a POLST No Identifying Problems No Social Work Triggers Is A Social Work Consult Needed No Mandate Report Filed No Admitted From Home Pre-Admission Level Of Functioning Status Assist With ADL Level Of Functioning Comment PER MARIANO, SHE ASSISTS WITH CHANGING, PREPARING MEALS, AND TRANSPORTATION FOR PATIENT TO PHYSICIAN'S APPOINTMENTS. Prior Resources/Services Used In Last 12 Months No Prior Resources Used Prior DME No Prior DME Used Living Situation Lives With Family Home Support No Caregiver Issues Financial Issues No Known Financial Issue Referral To The Financial Counselor Needed No Factors/Needs No D/C Needs Identified Pt/Rep Participated In Discharge Plan Yes Discharge Plan Comments TENTATIVE DISCHARGE PLAN IS FOR PATIENT TO RETURN HOME. DC Plan Status Initiated
[2019-12-04] MEDS: LACTULOSE 20 GM/30 ML UDC PO SCH ×2 (14:13→21:28)
[2019-12-04 16:00] VITALS: BP 111/73
[2019-12-04] MEDS ORDERED: DEXTROSE 50% 50 ML SYR IVP SCH (19:10)
[2019-12-04] MEDS ORDERED: CALCIUM CHLORIDE 10% 100 MG/ML SYR IVP SCH (19:10)
[2019-12-04] MEDS ORDERED: INSULIN REGULAR, HUMAN 100 UNIT/ML VIAL IVP SCH (19:10)
[2019-12-04] MEDS ORDERED: SODIUM BICARBONATE 8.4% PFS 50 MEQ/50 ML SYR IVP SCH (19:10)
--- NOTE | 2019-12-04 19:25 | NUR ---
RECEIVED BEDSIDE ENDORSEMENT FROM AM SHIFT RN. PATIENT IS LYING IN BED, NO SOB, AOX4, RESPIRATION EVEN AND UNLABORED, WITH RH 24 INFUSING NS AT 10CC/HR, WITH INDWELLING WISEMAN CATH IN PLACE, FALL RISK PROTOCOL IN PLACE, CONTACT PRECAUTION OBSERVED FOR ESBL URINE. PLAN OF CARE DISCUSSED, CALL LIGHT WITHIN REACH. Addendum: 12/04/19 at 2016 by Nevin Thomas RN PATIENT IS AOX1 NOT AOX4.
--- NOTE | 2019-12-04 20:31 | NUR ---
CARE PLAN REVIEWED, INTERVENTIONS IMPLEMENTED: PAIN MGMT, WOUND MGMT, REPOSITIONED FREQUENTLY THROUGHOUT SHIFT, LABS AND I/O MONITORED. VSS, AFEBRILE, O2 SAT >92% ON RA. C/O PAIN X1 WITH RELIEF FROM PRN NORCO. PT CONTINUES ON IV ABX WITH NO ADVERSE REACTIONS NOTED AND/OR REPORTED. PERSONAL BELONGINGS, BEDSIDE TABLE, CALL LIGHT WITHIN REACH. WILL CONTINUE TO MONITOR.
--- NOTE | 2019-12-04 22:25 | NUR ---
RECEIVED REPORT FROM AM SHIFT. PT SEEN AND ASSESSED. PT FOUND ON ROOM AIR WITH SPO2 OF 96%. PT IS IN NO APPARENT RESPIRATORY DISTRESS AT THIS TIME. PRN TX NOT INDICATED AT THE MOMENT. WILL CONTINUE TO MONITOR PT.
[2019-12-05] VITALS: BP 123/78
[2019-12-05] MEDS: FLUCONAZOLE 200 MG/NS PREMIX 100 ML IV SCH (01:13)
--- NOTE | 2019-12-05 01:13 | NUR ---
PATIENT PULLED OUT HIS IV SITE. RE INSERTED IV SITE AT LEFT WRIST G 24, ATTEMPTED X3 WITH GOOD BLOOD RETURN, SECURED SITE. GAVE FLUCONAZOLE IV ORDERED, NO A/R NOTED.
[2019-12-05] MEDS: MEROPENEM 1,000 MG in NACL 0.9% 100 ML IV SCH ×3 (04:46→21:00)
--- NOTE | 2019-12-05 04:46 | NUR ---
MERREM IV GIVEN ORDERED, NO A/R NOTED.
--- NOTE | 2019-12-05 07:19 | NUR ---
PATIENT IS IN STABLE CONDITION. NO DISTRESS NOTED, ENDORSED TO AM SHIFT RN FOR CONTINUITY OF CARE.
--- NOTE | 2019-12-05 07:20 | NUR ---
RECEIVED BEDSIDE ENDORSEMENT FROM RADIOLOGY TECHNICIAN RN. PATIENT IS LYING IN BED, NO SOB, AOX1, RESPIRATION EVEN AND UNLABORED, WITH LEFT WRIST IV INTACT AND PATENT, IVF INFUSING NS AT 10CC/HR, WITH INDWELLING WISEMAN CATH IN PLACE, FALL RISK PROTOCOL IN PLACE, CONTACT PRECAUTION OBSERVED FOR ESBL URINE. PLAN OF CARE DISCUSSED, CALL LIGHT WITHIN REACH.
[2019-12-05 08:00] VITALS: BP 123/77
--- NOTE | 2019-12-05 08:41 | NUR ---
SCREEN FOR LOW CHANTAL SCALE AT RISK, CONTINUE TO FOLLOW PRESSURE ULCER PREVENTION INTERVENTIONS. -TURN AND REPOSITION PATIENT Q 2H -ASSESS AND MONITOR SKIN CONDITION DURING POSITION CHANGE -OFFLOAD BILATERAL HEELS BY PLACING PILLOWS UNDER CALVES AT ALL TIMES, UNLESS OTHERWISE CONTRAINDICATED -PRESSURE REDISTRIBUTION BY PLACING PILLOWS AND OFFLOADING SACRALCOCCYX -KEEP SKIN CLEAN AND DRY AT ALL TIMES.
[2019-12-05 09:53] LABS: BASOPHILS # (AUTO) 0.1 K/uL (0.00-0.22); BASOPHILS % (AUTO) 0.8 % (0.0-2.0); EOSINOPHILS # (AUTO) 0.1 K/uL (0-0.4); EOSINOPHILS % (AUTO) 0.8 % (0.0-4.0); HEMATOCRIT 28.9 % (36-52); HEMOGLOBIN 8.4 g/dL (12.0-18.0); LYMPHOCYTES # (AUTO) 0.7 K/uL (2.0-11.5); LYMPHOCYTES % (AUTO) 3.8 % (20.5-51.1); MEAN CORPUSCULAR HEMOGLOBIN 22 pg (27-31); MEAN CORPUSCULAR HGB CONC 29 g/dL (33-37); MEAN CORPUSCULAR VOLUME 75.8 fL (80-94); MONOCYTES # (AUTO) 1.8 K/uL (0.8-1.0); MONOCYTES % (AUTO) 10.4 % (1.7-9.3); NEUTROPHILS # (AUTO) 14.6 K/uL (1.8-7.7); NEUTROPHILS % (AUTO) 84.2 % (42.2-75.2); PLATELET COUNT (AUTO) 248 K/uL (140-450); RED BLOOD CELL COUNT(AUTO) 3.81 MIL/uL (4.20-6.10); RED CELL DISTRIBUTION WIDTH 25.4 % (11.6-13.7); WHITE BLOOD COUNT (AUTO) 17.3 K/uL (4.8-10.8)
--- NOTE | 2019-12-05 10:00 | NUR ---
PATIENT IS STABLE. PT IN BED ABLE TO WAKE. BED IN LOW POSITION. NO S/S OF DISTRESS NOTED.
[2019-12-05 12:25] LABS: ANION GAP 18.5 (8-16); CARBON DIOXIDE 16.6 mmol/L (21-32); CREATININE 1.6 mg/dL (0.6-1.3); POTASSIUM 5.1 mmol/L (3.5-5.1)
--- NOTE | 2019-12-05 13:00 | NUR ---
PT PULLED IV OUT. WILL ATTEMPT TO RE INSERT IV.
[2019-12-05] MEDS: LACTULOSE 20 GM/30 ML UDC PO SCH ×2 (13:01→21:00)
[2019-12-05] MEDS: SPIRONOLACTONE 25 MG TAB PO SCH ×2 (13:01→17:00)
[2019-12-05] MEDS: FUROSEMIDE 20 MG/2 ML VIAL IVP SCH ×2 (13:02→21:00)
--- NOTE | 2019-12-05 15:00 | NUR ---
UNABLE TO INSERT IV AFTER 3 ATTEMPTS. WILL TRY AGAIN. PER LAB PATIENT ALSO REFUSED BLOOD DRAW X3.
[2019-12-05 16:00] VITALS: BP 110/78
--- NOTE | 2019-12-05 16:08 | NUR ---
12/05/19 RD INITIAL ASSESSMENT COMPLETED PLEASE REFER TO NUTRITION ASSESSMENT UNDER CARE ACTIVITY FOR ESTIMATED NUTRITIONAL NEEDS. 1. PENDING SWALLOW EVALUATION RECOMMENDATIONS BY LOIN TRIMMER 2. IF PATIENT FAILS SWALLOW EVALUATION CONSIDER ENTERAL NUTRITION 3. RECOMMEND ENSURE TID IF PO INTAKE <75% 4. RD TO [id number] DAYS, HIGH RISK J[address]SON Z[address]
--- NOTE | 2019-12-05 16:56 | NUR ---
ST CLARIFICATION NOTE Pt HAS FUNCTIONAL SWALLOW FOR Pt, ALTHOUGH Pt COMPLAINED OF UNCOMFORTABLE BOWEL DISTENTION D/T ASCITES. RN NOTED PROCDURE TO DRAIN FLUID PLANNED. RN, RASTA, CLEARED Pt FOR SWALLOW EVAL. Pt WAS ENDENTULOUS W/O DENTURES AVAILABLE. Pt WAS ABLE TO TOLERATE PUREE FOOD AND THIN LIQUID BY CUP AND STRAW W/O OVERT S/S OF ASPIRATION OR PENETRATION NOTED. AP TRANSFER AND SWALLOW RESPONSE WERE TIMELY WITH FULL LARYNGEAL ELEVATION AND EXCURSION. PO INTAKE MAY BE IMPACTED BY BOWEL DISTENTION CAUSING DISCOMFORT. IF PO INTAKE IS POOR, Pt MAY NEED ALTERNATE MEANS OF NUTRITION TEMPORARILY TO MEAN NUTRITIONAL NEEDS. RECOMMENDATIONS: 1. PUREE AND THIN DIET 2. ASPIRATIION PRECAUTIONS, ORAL CARE TRAY SET UP, FEEDING ASSISTANCE. 3. MONITOR PO INTAKE. IF POOR, MAY NEED ALTERNATE MEANS OF NUTRITION TEMPORARILY TO MEET NUTRITIONAL NEEDS. 4. D/C SKILLED ST FOR SWALLOW TX. Pt HAS FUNCTIONAL SWALLOW FOR Pt. ERIK CONTEH, MS, CCC-PUBLIC POLICY COORDINATOR
[2019-12-05 18:53] LABS: ALBUMIN 1.5 g/dL (3.4-5.0); ANION GAP 16.9 (8-16); CARBON DIOXIDE 17.2 mmol/L (21-32); CREATININE 1.6 mg/dL (0.6-1.3); POTASSIUM 5.1 mmol/L (3.5-5.1); TOTAL BILIRUBIN 1.8 mg/dL (0.0-1.0)
[2019-12-05 18:56] LABS: PROTHROMBIN TIME 16.3 secs (10.8-13.4)
--- NOTE | 2019-12-05 19:30 | NUR ---
RECEIVED ENDORSEMENT FROM AM SHIFT RN. PATIENT JUST GOT BACK FROM CT SCAN. RESPIRATION EVEN AND UNLABORED, NO SOB. NO IV LINE, FALL RISK PROTOCOL IN PLACE. PLAN OF CARE DISCUSSED. CALL LIGHT WITHIN REACH.
--- NOTE | 2019-12-05 19:35 | NUR ---
DR. JORDAN, ORDERED AMMONIA LEVEL IN AM. NOTED AND CARRIED OUT. ALSO SAID OK TO INSERT PICC LINE BECAUSE THE PATIENT IS HARD STICK. WILL GET CONSENT.
--- NOTE | 2019-12-05 20:00 | NUR ---
INFORMED DR BETANCUR RE: CT SCAN RESULT, BOWEL OBSTRUCTION. SAID IF THE PATIENT IS NOT LEAVING, TO MONITOR AND IF LEAVING, NGT. NOTED. INFORMED DR. JORDAN ABOUT WHAT DR. BETANCUR'S PLAN.
--- NOTE | 2019-12-05 20:15 | NUR ---
SPOKE TO MARIANO CARMELINA (DAUGHTER) EXPLAINED THAT PATIENT NEEDS TO HAVE A PICC LINE BECAUSE PATIENT IS HARD STICK AND THAT THERE ARE ANTIBIOTIC MEDS IV. DAUGHTER REFUSED INSERTION OF PICC LINE. WILL INFORM .
--- NOTE | 2019-12-05 21:25 | NUR ---
DR. JORDAN INFORMED THAT THE DAUGHTER OF PATIENT REFUSED PICC LINE. SAID OK. SHE'LL TRY TO CALL HER TOMORROW.
--- NOTE | 2019-12-05 21:32 | NUR ---
DID NOT ADMINISTER MERREM IV, LASIX IVP DUE TO NO IV LINE. PATIENT IS HARD STICK. HELD LACTULOSE PER DR. AMOS, LACTULOSE NOT GIVEN, HAS BOWEL OBSTRUCTION.
[2019-12-06] VITALS: BP 112/70
--- NOTE | 2019-12-06 00:05 | NUR ---
NGT INSERTED. CHECKED PLACEMENT BY AUSCULTATION AND ABDOMINAL RESIDUAL NOTED, NGT IN PLACE. INFORMED THAT PATIENT IS PULLING OUT NGT. DR. JORDAN ORDERED SOFT WRIST RESTRAIN TO AVOID PULLING OUT NG TUBE. X-RAY TO CONFIRM PLACEMENT. NOTED AND CARRIED OUT.
[2019-12-06] MEDS: FLUCONAZOLE 200 MG/NS PREMIX 100 ML IV SCH (00:50)
--- NOTE | 2019-12-06 02:20 | NUR ---
NOTED NG TUBE OUT, RE INSERTED A NEW TUBE, AUSCULTATED AND ASPIRATED GASTRIC CONTENT TO CHECK, X-RAY ORDERED TO CHECK PLACEMENT.
--- NOTE | 2019-12-06 04:10 | NUR ---
PATIENT IS ASLEEP.
[2019-12-06] MEDS: MEROPENEM 1,000 MG in NACL 0.9% 100 ML IV SCH ×3 (04:11→21:06)
[2019-12-06 04:56] LABS: APPEARANCE,SPUN,BODY FLUID CLEAR (CLEAR); APPEARANCE,UNSPUN,BODY FLUID HAZY (CLEAR); SPECIMENTYPE,BODY FLUID PARACENTESIS
[2019-12-06 04:57] LABS: COLOR,BODY FLUID YELLOW (LT YELLOW); POLYNUCLEAR, BODY FLUID 68 %; RBC, BODY FLUID 600 /cu. mm.; TOTAL VOLUME,BODY FLUID 1950 mL; WBC, BODY FLUID 1644 /cu. mm.
--- NOTE | 2019-12-06 06:00 | NUR ---
KEPT CLEAN, DRY AND COMFORTABLE, ALL NEEDS ATTENDED. CALL LIGHT WITHIN REACH.
[2019-12-06 06:16] LABS: BASOPHILS % (AUTO) 0.2 % (0.0-2.0); EOSINOPHILS # (AUTO) 0.2 K/uL (0-0.4); EOSINOPHILS % (AUTO) 1.1 % (0.0-4.0); HEMATOCRIT 25.7 % (36-52); HEMOGLOBIN 7.7 g/dL (12.0-18.0); LYMPHOCYTES # (AUTO) 0.6 K/uL (2.0-11.5); LYMPHOCYTES % (AUTO) 3.7 % (20.5-51.1); MEAN CORPUSCULAR HEMOGLOBIN 22 pg (27-31); MEAN CORPUSCULAR HGB CONC 30 g/dL (33-37); MEAN CORPUSCULAR VOLUME 74.1 fL (80-94); MONOCYTES # (AUTO) 1.8 K/uL (0.8-1.0); MONOCYTES % (AUTO) 10.4 % (1.7-9.3); NEUTROPHILS # (AUTO) 14.2 K/uL (1.8-7.7); NEUTROPHILS % (AUTO) 84.6 % (42.2-75.2); PLATELET COUNT (AUTO) 222 K/uL (140-450); RED BLOOD CELL COUNT(AUTO) 3.47 MIL/uL (4.20-6.10); RED CELL DISTRIBUTION WIDTH 24.7 % (11.6-13.7); WHITE BLOOD COUNT (AUTO) 16.8 K/uL (4.8-10.8)
[2019-12-06 06:39] LABS: ANION GAP 16.7 (8-16); CARBON DIOXIDE 19.5 mmol/L (21-32); CREATININE 1.7 mg/dL (0.6-1.3); POTASSIUM 5.2 mmol/L (3.5-5.1)
--- NOTE | 2019-12-06 07:05 | NUR ---
PATIENT IS NOT IN DISTRESS, V/S STABLE 120/76, 96, 99% RA, 97.7, 20. WILL ENDORSE TO AM SHIFT RN FOR CONTINUITY OF CARE.
[2019-12-06 07:08] LABS: MAGNESIUM 2.4 mg/dL (1.8-2.4); PHOSPHORUS 5.9 mg/dL (2.5-4.9)
--- NOTE | 2019-12-06 07:15 | NUR ---
RECEIVED REPORT FROM PM RN. PT CAME FROM HOME. C/O: ABDOMINAL PAIN. DX: ABDOMINAL PAIN, ASCITIES, AND POSSIBLE BOWEL OBSTRUCTION. HX: CIRRHOSIS, HTN, ASTHMA, CKD. NKA. ISOLATION: ESLB IN URINE. PT IS NPO. RA. PT HAS WISEMAN. AMMONIA LEVELS HIGH. INTERMITTENT SUCTION. PARACENTISIS: 1.5 L OUT. PT IS ON RESTRAINTS. PLAN: WILL DISCUSS WITH FAMILY ON INSERTION OF PICC LINE TO CONTINUE ANTIBIOTICS, 2HR RESTRAINT CHECKS.
[2019-12-06 08:00] VITALS: BP 131/79
[2019-12-06] MEDS: TAMSULOSIN 0.4 MG CAP PO SCH (08:30)
[2019-12-06] MEDS: SPIRONOLACTONE 25 MG TAB PO SCH (09:00)
[2019-12-06] MEDS: FUROSEMIDE 20 MG/2 ML VIAL IVP SCH (09:00)
--- NOTE | 2019-12-06 09:00 | NUR ---
PT MEDICATIONS. STOPPED SUCTION. TRIED TO START IV. 3 UNSUCCESSFUL ATTEMPTS. CALLED CHARGE NURSEJACQUELINE TO TRY TO PLACE AN IV.
[2019-12-06] MEDS: LACTULOSE 20 GM/30 ML UDC PO SCH (09:59)
--- NOTE | 2019-12-06 10:00 | NUR ---
CHARGE NURSE, JACQUELINE WAS UNABLE TO START AN IV ON PT. CALLED ASSISTANCE SPECIALIST FOR HELP. STILL WAITING FOR RESPONSE. CHECKED RESTRAINTS, NO SIGNS OF INJURY. REPOSITIONED PT TO RIGHT SIDE.
--- NOTE | 2019-12-06 10:30 | NUR ---
SPOKE WITH PT'S DAUGHTER, WHO MAKES THE MEDICAL DECISIONS FOR PT. SHE REFUSED PICC LINE PLACEMENT. NO IV ACCESS AT THIS POINT. NOTIFIED THAT BRICK TESTER AND PHYSICIAN.
--- NOTE | 2019-12-06 10:30 | NUR ---
ADVANCED NG TUBE 5 CM PER PHYSICIANS ORDER. PLACED XRAY ORDER TO CONFIRM PLACEMENT.
[2019-12-06 11:57] LABS: GLUCOSE,BODY FLUID 48 mg/dL; LDH,BODY FLUID 565 U/L
--- NOTE | 2019-12-06 12:00 | NUR ---
CHECKED RESTRAINTS, NO SIGNS OF INJURY. REPOSITIONED PT. PLACED PILLOW UNDER SACRUM
--- NOTE | 2019-12-06 13:00 | NUR ---
UNABLE TO PASS IV ANTIBIOTIC DUE TO NO IV ACCESS. THE ER HAS BEEN UNABLE TO SEND AN SHOP BLACKSMITH TO START AN IV.
[2019-12-06] MEDS ORDERED: SODIUM ZIRCONIUM CYCLOSILICATE 10 GM POWD.PACK PO SCH (13:30)
[2019-12-06] MEDS ORDERED: ALBUMIN HUMAN 25% 100 ML IV SCH (14:00)
--- NOTE | 2019-12-06 14:00 | NUR ---
UNABLE TO START ALBUMIN DUE TO NO IV ACCESS. THE ER HAS NOT SENT DOWN AN MINING PLANT OPERATOR TO START IV.
--- NOTE | 2019-12-06 14:00 | NUR ---
PT REMOVED NG TUBE. SPOKE WITH DR CHEUNG IF I SHOULD PLACE A NEW NG TUBE. DR CHEUNG SAID NO BECAUSE OF UNABLE TO CONTINUE FURTHER TREATMENT DUE TO PT'S DAUGHTERS REQUEST. SPOKE WITH COMPUTER SCIENCE PROFESSOR, JACQUELINE ABOUT NOT PLACING NG TUBE DUE TO DR. CHEUNG. SHE IS NOTIFIED ON NOT PLACING NG TUBE. WILL CONTINUE TO MONITOR. STILL WAITING FOR WORKFORCE SPECIALIST TO HELP PLACE IV.
--- NOTE | 2019-12-06 15:10 | NUR ---
CALLED THE ER AGAIN TO FIND A NURSE WHO CAN INITIATE AN IV. NO RESPONSE. BRIDGE CLUB MANAGER MENTIONED THE ER CHARGE NURSE, ROCIO. NO RESPONSE. UNABLE TO PASS IV MEDICATIONS.
[2019-12-06 16:00] VITALS: BP 128/77
[2019-12-06] MEDS: HYDROcodone/APAP 5/325 MG 1 TAB TAB PO PRN (17:26)
--- NOTE | 2019-12-06 17:50 | NUR ---
GAVE PAIN MED CRUSHED IN APPLE SAUCE. SPOKE WITH DAUGHTER, MARIANO. SHE WAS NOT HAPPY WITH CURRENT PLAN OF CARE. PTS DAUGHTER SPOKE TO CHARGE NURSE. PTS DAUGHTER CONSENTED TO PICC LINE PLACEMENT. CHARGE NURSE CALLED PICC LINE NURSE.
--- NOTE | 2019-12-06 18:00 | NUR ---
PLACED NG TUBE IN RT NARE FOR INTERMITTENT SUCTION. XRAY ORDER ALREADY PLACED. WAITING FOR CONFIRMATION. WILL ENDORSE CARE TO PM RN.
--- NOTE | 2019-12-06 18:30 | NUR ---
PICC LINE RN PLACED RT UPPER ARM DOUBLE LUMEN PICC LINE. XRAY ORDERED FOR PLACEMENT CONFIRMATION. WILL ENDORSE CARE TO PM RN.
--- NOTE | 2019-12-06 19:15 | NUR ---
RECEIVED BEDSIDE REPORT FROM DAY SHIFT NURSE FOR CONTINUITY OF CARE. PT IS ASLEEP. ON RA WITH BREATHING UNLABORED. CHEST RISE AND FALL IS SYMMETRICAL. NG TUBE IS IN PLACE AND SET TO INTERMITTENT SUCTION. SKIN IS WARM, DRY, AND INTACT. PICC LINE IS IN THE RIGHT UPPER ARM DOUBLE LUMEN. FLUSHED AND PATENT. PT IS ON CONTACT PRECAUTIONS FOR ESBL IN THE URINE. PT IS ON RESTRAINTS WILL REEVALUATE TO SEE IF IT IS DEEMED NECESSARY. POTASSIUM IS 5.2 FROM MORNING LABS. AMMONIA IS 87 AND DAY SHIFT NURSE GAVE LACTULOSE ON AM SHIFT. BED IS IN THE LOWEST POSITION AND CALL LIGHT IS WITHIN REACH. PLAN OF CARE WAS DISCUSSED.
--- NOTE | 2019-12-06 19:15 | NUR ---
TRANSFER OF CARE TO PM RN. PT IS STABLE. VS STABLE.
--- NOTE | 2019-12-06 20:29 | NUR ---
SPOKE TO DR. JORDAN AND INFORMED HER ABOUT THE POTASSIUM AT 5.2, NO NEW ORDERS AT THIS TIME. ALSO INFORMED HER ABOUT THE ALBUMIN THAT WAS NOT ADMINISTERED DURING THE DAY BECAUSE THE PICC LINE WASN'T PLACED IN TIME, DOCTOR WANTS A NEW ORDER FOR ALBUMIN TO BE GIVEN IN THE PM. DOCTOR ALSO WANTS THE RESTRAINTS TO BE RENEWED. WILL COMPLETE THIS ORDERS SOON VERIFIED.
[2019-12-06] MEDS: MORPHINE SULFATE 2 MG/ML SYR IVP PRN (21:17)
--- NOTE | 2019-12-06 21:17 | NUR ---
PT'S FLACC SCALE WAS 7/10. PT WAS GIVEN MORPHINE IVP. PT IS NO LONGER MOANING. WILL CONTINUE TO MONITOR PAIN.
--- NOTE | 2019-12-06 21:50 | NUR ---
ORDER IS IN FOR ALBUMIN HUMAN 25% 100 ML. WILL ADMINISTER SOON VERIFIED AND ANTIBIOTIC IS DONE INFUSING.
[2019-12-06] MEDS ORDERED: ALBUMIN HUMAN 25% 100 ML IV ONE (22:30)
--- NOTE | 2019-12-06 22:45 | NUR ---
MANAGER PROJECT MANAGEMENT IS AT BEDSIDE FOR CONTRAST IMAGING. CONTRAST WAS INSERTED THROUGH NG TUBE. NO APPARENT SIGNS OF DISTRESS OR ALLERGIES. PT IS NOT IN PAIN AT THIS TIME. LAYING IN SEMI FOWLERS AFTER PROCEDURE. PT IS STABLE AT THIS TIME.
--- NOTE | 2019-12-06 23:44 | NUR ---
PT IS ASLEEP. NO SIGNS OF PAIN OR DISTRESS. PT WAS REPOSITIONED Q1 HR PER PROTOCOL. RESTRAINTS IN PLACE. PT'S CHUCKS ARE DRY AT THIS TIME. WISEMAN CATHETER IN PLACE. 100 ML OUTPUT FROM THE WISEMAN CATHETER. SKIN IS WARM, DRY, AND INTACT. ALBUMIN IS INFUSING THROUGH PICC LINE. WILL CONTINUE TO MONITOR.
[2019-12-07] VITALS: BP 117/78
--- NOTE | 2019-12-07 02:00 | NUR ---
NG TUBE WAS AUSCULTATED AND IT IS IN THE CORRECT PLACE. PT IS AWAKE. A&O X1. ON RA WITH PICC LINE INTACT AND INFUSING. PT IS CHANGED AND SOILED LINENS ARE REPLACED. PT IS TURNED AND REPOSITIONED Q1HR. RESTRAINTS IN PLACE. PT IS ASKING FOR WATER BUT HE IS NPO AND IT WAS EXPLAINED TO HIM. PT DOES NOT VERBALIZE UNDERSTANDING. BED IS IN THE LOWEST POSITION AND CALL LIGHT IS WITHIN REACH.
[2019-12-07] MEDS: FLUCONAZOLE 200 MG/NS PREMIX 100 ML IV SCH (02:03)
--- NOTE | 2019-12-07 04:00 | NUR ---
PT IS ASLEEP. CHEST RISE AND FALL IS SYMMETRICAL. PT WAS AWOKEN TO REPOSITION AND CHECK FOR SOILED LINENS. PT WAS DRY AT THIS TIME AND IS LAYING COMFORTABLY IN SEMI FOWLERS POSITION.
[2019-12-07] MEDS: MEROPENEM 1,000 MG in NACL 0.9% 100 ML IV SCH ×3 (05:11→21:08)
[2019-12-07 06:02] LABS: EOSINOPHILS # (AUTO) 0.1 K/uL (0-0.4); EOSINOPHILS % (AUTO) 0.9 % (0.0-4.0); HEMATOCRIT 23.8 % (36-52); HEMOGLOBIN 7.2 g/dL (12.0-18.0); LYMPHOCYTES # (AUTO) 0.5 K/uL (2.0-11.5); LYMPHOCYTES % (AUTO) 3.2 % (20.5-51.1); MEAN CORPUSCULAR HEMOGLOBIN 22 pg (27-31); MEAN CORPUSCULAR HGB CONC 30 g/dL (33-37); MEAN CORPUSCULAR VOLUME 73.6 fL (80-94); MONOCYTES # (AUTO) 1.3 K/uL (0.8-1.0); MONOCYTES % (AUTO) 7.9 % (1.7-9.3); NEUTROPHILS # (AUTO) 14.5 K/uL (1.8-7.7); PLATELET COUNT (AUTO) 174 K/uL (140-450); RED BLOOD CELL COUNT(AUTO) 3.23 MIL/uL (4.20-6.10); RED CELL DISTRIBUTION WIDTH 24.8 % (11.6-13.7); WHITE BLOOD COUNT (AUTO) 16.5 K/uL (4.8-10.8)
[2019-12-07 06:20] LABS: ANION GAP 15.1 (8-16); CARBON DIOXIDE 21.4 mmol/L (21-32); CREATININE 1.6 mg/dL (0.6-1.3); POTASSIUM 5.5 mmol/L (3.5-5.1)
[2019-12-07 06:41] LABS: MAGNESIUM 2.6 mg/dL (1.8-2.4); PHOSPHORUS 5.8 mg/dL (2.5-4.9)
[2019-12-07] MEDS: MORPHINE SULFATE 2 MG/ML SYR IVP PRN (06:49)
--- NOTE | 2019-12-07 06:49 | NUR ---
PT WAS GIVEN MORPHINE PRN FOR PAIN IN HIS STOMACH. FLACC SCALE 7/10.
--- NOTE | 2019-12-07 07:15 | NUR ---
PATIENT LYING DOWN IN BED SLEEPING, AROUSABLE BY VOICE. CONFUSED. AAOX1, NGTUBE IN PLACE ON INTERMITTENT SUCTIONING PER MD ORDERS. RIGHT UPPER ARM PICC LINE NOTED, INFUSING IVF PER MD ORDERS. WISEMAN CATHETER IN PLACE. SKIN COLOR APPROPRIATE TO ETHNICITY AND WARM TO TOUCH. RESPIRATIONS EVEN, UNLABORED, ON ROOM AIR. REVIEWED PLAN OF CARE WITH PATIENT. REINFORCEMENT NEEDED. SAFETY MEASURES IN PLACE, CALL LIGHT WITHIN REACH. WILL CONTINUE TO MONITOR.
--- NOTE | 2019-12-07 07:20 | NUR ---
ENDORSED PT TO DAY SHIFT NURSE FOR CONTINUITY OF CARE. PT IS STABLE AT THIS TIME.
[2019-12-07 08:00] VITALS: BP 106/69
[2019-12-07] MEDS: TAMSULOSIN 0.4 MG CAP PO SCH (08:30)
--- NOTE | 2019-12-07 09:10 | NUR ---
PATIENT LYING DOWN IN BED SLEEPING, AROUSABLE BY VOICE. NO DISTRESS NOTED. ON SOFT WRIST RESTRAINTS DUE TO PULLING OUT NGTUBE. MEDS NOT GIVEN AT THIS TIME DUE TO NPO. WILL CONTINUE TO MONITOR.
--- NOTE | 2019-12-07 13:57 | NUR ---
SCHEDULED MEDICATIONS DUE GIVEN. WILL CONTINUE TO MONITOR.
[2019-12-07] MEDS ORDERED: ALBUMIN HUMAN 25% 50 ML IV SCH (14:00)
[2019-12-07] MEDS: NACL 0.9% 1,000 ML IV SCH (15:36)
[2019-12-07 16:00] VITALS: BP 123/83
[2019-12-07] MEDS ORDERED: SODIUM ZIRCONIUM CYCLOSILICATE 10 GM POWD.PACK PO SCH (16:30)
[2019-12-07] MEDS ORDERED: VANCOMYCIN PER PHARMACY MC PRN (17:05)
--- NOTE | 2019-12-07 17:33 | NUR ---
PATIENT PULLED OUT NGTUBE. WILL INSERT NEW ONE. WILL CONTINUE TO MONITOR.
--- NOTE | 2019-12-07 18:40 | NUR ---
TRIED INSERTING NGTUBE TWICE AND HI LOW TRUCK DRIVER TWICE. UNABLE TO INSERT AT THIS TIME. PATIENT SCREAMING AND RESISTING INSERTION OF NGTUBE, WOULD NOT RELAX. GAVE LOKELMA VIA ORALLY PATIENT IS ABLE TO SWALLOW THIN LIQUIDS. OTHER SCHEDULED MEDICATIONS DUE GIVEN. WILL CONTINUE TO MONITOR.
[2019-12-07] MEDS: LACTULOSE 20 GM/30 ML UDC PR SCH (18:42)
--- NOTE | 2019-12-07 19:25 | NUR ---
GAVE REPORT TO CLINICAL QUALITY ASSURANCE SPECIALIST NURSE FOR CONTINUITY OF CARE. PATIENT IN STABLE CONDITION.
--- NOTE | 2019-12-07 19:26 | NUR ---
RECEIVED BEDSIDE ENDORSEMENT FROM AM SHIFT RN. PATIENT IS AOX1, RESPIRATION EVEN AND UNLABORED, ELLEN PICC, INTACT. WITH INDWELLING WISEMAN CATH IN PLACE, WITH BILATERAL WRIST RESTRAIN. FALL RISK PROTOCOL IN PLACE. SAFETY MEASURES IN PLACE. PLAN OF CARE DISCUSSED, CALL LIGHT WITHIN REACH.
--- NOTE | 2019-12-07 20:30 | NUR ---
PATIENT REFUSED THE RE-INSERTION OF NG TUBE, EXPLAINED THE RISKS AND BENEFITS X3 BUT PATIENT STILL REFUSED AND VERBALIZED "NO", MOVED HIS HEAD LEFT AND RIGHT WELL.
--- NOTE | 2019-12-07 21:11 | NUR ---
MERREM IV GIVEN ORDERED. NO A/R NOTED.
--- NOTE | 2019-12-07 21:44 | NUR ---
RESTRAIN ORDERED FOR PULLING OF TUBES AND MEDICAL LINES PER DR. JORDAN. NOTED AND CARRIED OUT.
--- NOTE | 2019-12-07 21:53 | NUR ---
TELEPHONE CONSENT TAKEN FROM MARIANO HINESZ (DAUGHTER) FOR ULTRASOUND GUIDED PARACENTESIS.
[2019-12-08] VITALS: BP 124/77
[2019-12-08] MEDS: FLUCONAZOLE 200 MG/NS PREMIX 100 ML IV SCH (00:43)
--- NOTE | 2019-12-08 00:43 | NUR ---
FLUCONAZOLE IV GIVEN ORDERED, NO A/R NOTED.
[2019-12-08] MEDS: NACL 0.9% 1,000 ML IV SCH (00:50)
--- NOTE | 2019-12-08 02:28 | NUR ---
PATIENT IS ASLEEP. RESPIRATION EVEN AND UNLABORED.
[2019-12-08] MEDS: MEROPENEM 1,000 MG in NACL 0.9% 100 ML IV SCH ×3 (04:32→20:25)
--- NOTE | 2019-12-08 04:33 | NUR ---
MERREM IV GIVEN ORDERED, NO A/R NOTED, KEPT CLEAN, DRY AND COMFORTABLE.
--- NOTE | 2019-12-08 07:20 | NUR ---
PATIENT IS IN STABLE CONDITION. ENDORSED TO AM SHIFT RN FOR CONTINUITY OF CARE.
--- NOTE | 2019-12-08 07:21 | NUR ---
RECEIVED ENDORSEMENT WHITE SOURER NURSE, AWAKE , ALERT, CONFUSED, BREATHING SPONTANEOUSLY AT ROOM AIR, NOT IN DISTRESS NOTED. WITH ONGOING IV FLUID 0.9 % NS AT 40ML/H INFUSING WELL AT RT UPPER ARM PICC LINE NOTED. PLAN FOR PARACENTESIS TODAY. SAFETY MEASURES IN PLACE
[2019-12-08 08:00] VITALS: BP 149/70
[2019-12-08] MEDS: TAMSULOSIN 0.4 MG CAP PO SCH (08:30)
--- NOTE | 2019-12-08 09:05 | NUR ---
AWAKE AND IRRITABLE WITH BILATERAL WRIST SOFT RESTRAINTS NOTED. DUE MEDICATION NOT GIVEN, STILL NPO. AWAITS PLAN FOR TODAY.
[2019-12-08] MEDS: VANCOMYCIN 1,000 MG in DEXTROSE 5% 250 ML IV SCH (10:13)
[2019-12-08 10:36] LABS: BASOPHILS # (AUTO) 0.1 K/uL (0.00-0.22); BASOPHILS % (AUTO) 0.7 % (0.0-2.0); EOSINOPHILS # (AUTO) 0.1 K/uL (0-0.4); EOSINOPHILS % (AUTO) 0.4 % (0.0-4.0); HEMATOCRIT 24.7 % (36-52); HEMOGLOBIN 7.2 g/dL (12.0-18.0); LYMPHOCYTES # (AUTO) 0.6 K/uL (2.0-11.5); LYMPHOCYTES % (AUTO) 3.5 % (20.5-51.1); MEAN CORPUSCULAR HEMOGLOBIN 21 pg (27-31); MEAN CORPUSCULAR HGB CONC 29 g/dL (33-37); MEAN CORPUSCULAR VOLUME 73.5 fL (80-94); MONOCYTES # (AUTO) 1.1 K/uL (0.8-1.0); MONOCYTES % (AUTO) 6.5 % (1.7-9.3); NEUTROPHILS # (AUTO) 14.9 K/uL (1.8-7.7); NEUTROPHILS % (AUTO) 88.9 % (42.2-75.2); PLATELET COUNT (AUTO) 149 K/uL (140-450); RED BLOOD CELL COUNT(AUTO) 3.37 MIL/uL (4.20-6.10); RED CELL DISTRIBUTION WIDTH 24.2 % (11.6-13.7); WHITE BLOOD COUNT (AUTO) 16.8 K/uL (4.8-10.8)
[2019-12-08 10:52] LABS: ANION GAP 15.8 (8-16); CARBON DIOXIDE 23.6 mmol/L (21-32); CREATININE 1.4 mg/dL (0.6-1.3); POTASSIUM 5.4 mmol/L (3.5-5.1)
[2019-12-08 10:55] LABS: PROTHROMBIN TIME 17.2 secs (10.8-13.4)
[2019-12-08] MEDS ORDERED: SIMETHICONE 80 MG TAB.CHEW PO PRN (12:30)
[2019-12-08] MEDS: DEXT 5% / NACL 0.45% 1,000 ML IV SCH (12:35)
--- NOTE | 2019-12-08 12:42 | NUR ---
DR. CHEUNG, GI MADE ROUNDS. PATIENT CAN START FULL LIQUID DIET WITH SUPPLEMENT.
[2019-12-08] MEDS ORDERED: SODIUM ZIRCONIUM CYCLOSILICATE 10 GM POWD.PACK PO SCH (12:46)
--- NOTE | 2019-12-08 13:42 | NUR ---
FULLY AWAKE, FULL LIQUID DIET SERVED, ABLE TO DRINK 50ML OF APPLE JUICE AND ORAL SUPPLEMENT ENSURE STRAWBERRY FLAVOR, TOLERATED WELL. DUE MEDICATION GIVEN.
--- NOTE | 2019-12-08 14:05 | NUR ---
RESTRAINT DISCONTINUED ORDERED, PATIENT APPARENTLY CALMED AND INSTRUCTED NOT TO REMOVE THE LINES, FULLY UNDERSTAND
[2019-12-08 16:00] VITALS: BP 123/76
--- NOTE | 2019-12-08 16:38 | NUR ---
12/08/19 RD INITIAL ASSESSMENT COMPLETED PLEASE REFER TO NUTRITION ASSESSMENT UNDER CARE ACTIVITY FOR ESTIMATED NUTRITIONAL NEEDS. 1. CONTINUE FULL LIQUIDS TOLERATED 2. ADVANCE TO PUREE BALANCE WEIGHER RECOMMENDATIONS 3. RECOMMEND ENSURE TID 4. PROVIDE ASSISTANCE WITH MEALS 5. RD TO FOLLOW-UP 2-3 DAYS, HIGH RISK J[address]SON ZAR[address]
[2019-12-08] MEDS: LACTULOSE 20 GM/30 ML UDC PR SCH (18:05)
--- NOTE | 2019-12-08 18:05 | NUR ---
PLACE ON LEFT SIDE LYING POSITION,LACTULOSE PER RECTUM GIVEN ORDERED,
--- NOTE | 2019-12-08 19:15 | NUR ---
ENDORSED TO CARAMEL MAKER NURSE IN STABLE CONDITION FOR CONTINUITY OF CARE.
--- NOTE | 2019-12-08 19:16 | NUR ---
RECEIVED BEDSIDE SHIFT REPORT FROM DAY SHIFT NURSE. PT IN BED RESTING. PT WITH MOMENTS OF CONFUSION. RESPIRATIONS ARE EVEN AND UNLABORED TO ROOM AIR. SKIN IS WARM, DRY, AND INTACT. ABDOMEN IS LARGE AND DISTENDED. PT HAS ELLEN PICC LINE PATENT AND INTACT. IVF INFUSING WELL. PT KEPT SAFE AND COMFORTABLE. NO REQUESTS MADE. WILL CONTINUE TO MONITOR.
--- NOTE | 2019-12-08 20:25 | NUR ---
SCHEDULED MEDS GIVEN. PT IN BED SLEEPING. NO S/SX OF DISTRESS NOTED. WILL CONTINUE TO MONITOR.
--- NOTE | 2019-12-08 21:11 | NUR ---
PT HAD BOWEL MOVEMENT. ASSISTED SUPERVISOR WINDING DEPARTMENT IN PERINEAL CARE. PT TOLERATED CARE WELL. NO COMPLAINTS MADE AT THIS TIME. PT KEPT COMFORTABLE. SAFETY MEASURES IN PLACE. CALL LIGHT WITHIN REACH. WILL CONTINUE TO MONITOR.
--- NOTE | 2019-12-08 22:26 | NUR ---
PT ASLEEP. VISIBLE CHEST RISE AND FALL NOTED. PT NOT IN DISTRESS. SAFETY MEASURES IN PLACE, WILL CONTINUE TO MONITOR.
[2019-12-09] VITALS: BP 135/65
--- NOTE | 2019-12-09 00:20 | NUR ---
VITAL SIGNS STABLE. PT IN BED RESTING. DENIES ANY DISCOMFORT. PT NOT IN DISTRESS. ASSISTED WITH DRINKING WATER. PT TOLERATED WELL. SAFETY MEASURES IN PLACE. CALL LIGHT WITHIN REACH. WILL CONTINUE TO MONITOR.
[2019-12-09] MEDS: FLUCONAZOLE 200 MG/NS PREMIX 100 ML IV SCH (00:49)
--- NOTE | 2019-12-09 02:37 | NUR ---
PT ASLEEP. PT NOT IN DISTRESS. RESPIRATIONS EVEN AND UNLABORED. PT KEPT SAFE AND COMFORTABLE. SAFETY MEASURES IN PLACE. CALL LIGHT WITHIN REACH. WILL CONTINUE TO MONITOR.
[2019-12-09] MEDS: DEXT 5% / NACL 0.45% 1,000 ML IV SCH (02:53)
--- NOTE | 2019-12-09 04:23 | NUR ---
PERINEAL CARE AND CATHETER DONE. PT TOLERATED CARE WELL. DENIES ANY PAIN OR DISCOMFORT. SAFETY MEASURES IN PLACE. CALL LIT WITHIN REACH. WILL CONTINUE TO MONITOR.
[2019-12-09] MEDS: MEROPENEM 1,000 MG in NACL 0.9% 100 ML IV SCH ×2 (05:09→12:35)
[2019-12-09 06:49] LABS: ANION GAP 16.8 (8-16); CARBON DIOXIDE 17.9 mmol/L (21-32); CREATININE 1.3 mg/dL (0.6-1.3); POTASSIUM 4.7 mmol/L (3.5-5.1)
--- NOTE | 2019-12-09 07:16 | NUR ---
RECEIVED ENDORSEMENT FROM SWAGER OPERATOR, AWAKE,ALERT,ORIENTEDX1, BREATHING SPONTANEOUSLY AT ROOM AIR, NOT IN DISTRESS NOTED, WITH ONGOING IV FLUID D5 0.45% NS AT 75ML/H INFUSING WELL AT RT UPPER ARM PICC LINE DOUBLE LUMEN NOTED. WITH WISEMAN CATHETER F16 ATTACHED URINE BAG DRAINING TO A DARK ORANGE NOTED. SAFETY MEASURES IN PLACE AND CONTINUE MONITOR.
[2019-12-09 08:00] VITALS: BP 133/88
--- NOTE | 2019-12-09 08:49 | NUR ---
FULLY AWAKE AND ALERT, FULL LIQUID DIET TAKEN, TOLERATED WELL. DUE MEDICATION GIVEN
[2019-12-09] MEDS: TAMSULOSIN 0.4 MG CAP PO SCH (08:53)
--- NOTE | 2019-12-09 10:15 | NUR ---
FULLY AWAKE AND ABLE TO DRINK HIS ORAL SUPPLEMENT, TOLERATED WELL. DUE MEDICATION GIVEN
[2019-12-09] MEDS: VANCOMYCIN 1,000 MG in DEXTROSE 5% 250 ML IV SCH (10:55)
--- NOTE | 2019-12-09 12:33 | NUR ---
SEEN AND EXAMINED BY DR. CHEUNG, MADE AWARE THAT THE PATIENT ABLE PASSED TO PASSED LARGE AMOUNT OF LOOSE STOOL. ACCORDING TO HE WILL DISCONTINUE THE LACTULOSE PER RECTAL.
[2019-12-09] MEDS ORDERED: FERR324T11 PO (14:55)
[2019-12-09] MEDS ORDERED: FLUCONAZOLE (15:07)
--- NOTE | 2019-12-09 15:10 | NUR ---
MORTGAGE LOAN SPECIALIST DAV CALLED PATIENT WILL BE TRANSFER TO [facility] [place], TRANSPORT ALREADY ARRANGE BY 5PM
[2019-12-09] MEDS ORDERED: [UNRECOGNIZED DRUG - OTHER] IV (15:12)
[2019-12-09] MEDS ORDERED: IV Vancomycin IV (15:12)
[2019-12-09] MEDS ORDERED: TAMS0.4C96 PO (15:15)
--- NOTE | 2019-12-09 15:29 | NUR ---
[facility] CONTACTED AND SPOKE WITH NURSE ANYA BURGOS, LATEST VITAL SIGNS RELAYED, APPARENTLY WITH RIGHT UPPER ARM PICC LINE DOUBLE LUMEN FOR ANTIBIOTIC. DISCHARGE PACKET INSTRUCTION PREPARED.
--- NOTE | 2019-12-09 15:40 | NUR ---
DAUGHTER MARIANO CONTACTED AND INFORMED PATIENT WILL BE TRANSFER TO [facility].
[2019-12-09 15:59] VITALS: BP 126/72
[2019-12-09 16:00] VITALS: BP 126/72
--- NOTE | 2019-12-09 16:50 | NUR ---
[employer] CONTACTED ABOUT THE TRANSPORT STORE [facility], ACCORDING TO DAV THE PATIENT WILL STORE [facility] BY [facility] AT 1930H. CHARGE MADE AWARE.
[2019-12-09] MEDS ORDERED: FERROUS GLUCONATE 324 MG TAB PO SCH (17:00)
--- NOTE | 2019-12-09 18:05 | NUR ---
FULL LIQUID DIET SERVED, FEEDING ASSISTED BY [employer]. DUE MEDICATION GIVEN. 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
--- NOTE | 2019-12-09 18:58 | NUR ---
[facility] PERSONNEL CAME AND HARVEST WORKER THE PATIENT PER HUSEYIN IN STABLE CONDITION, BREATHING SPONTANEOUSLY AT ROOM AIR, WITH RT UPPER ARM PICC LINE AND WITH WISEMAN CATHETER F16 IN PLACED. DISCHARGE INSTRUCTION PACKET AND PATIENT BELONGINGS GIVEN.
[2019-12-10] MEDS ORDERED: MULTIVITAMIN/MINERALS 1 TAB PO SCH (09:00)
== END 2019-12-09 19:00 | DRG 871 ==
LOC: MED 20:44 → MMU 12-02 00:41 → MTU 12-02 03:06
PROVIDERS: ADMIT Family Medicine; ATTEND Family Medicine
PROC: 0W9G3ZZ Drainage of Peritoneal Cavity, Percutaneous Approach (ICD-10-PCS; principal; 2019-12-05)
PROC: 02HV33Z Insertion of Infusion Device into Superior Vena Cava, Percutaneous Approach (ICD-10-PCS; 2019-12-06)
PROC: B548ZZA Ultrasonography of Superior Vena Cava, Guidance (ICD-10-PCS; 2019-12-06)
PROC: 0D9670Z Drainage of Stomach with Drainage Device, Via Natural or Artificial Opening (ICD-10-PCS; 2019-12-06)
DX: A41.01 Sepsis due to Methicillin susceptible Staphylococcus aureus (principal); K65.2 Spontaneous bacterial peritonitis; E43 Unspecified severe protein-calorie malnutrition; N17.0 Acute kidney failure with tubular necrosis; N18.6 End stage renal disease; K76.7 Hepatorenal syndrome; E87.1 Hypo-osmolality and hyponatremia; E87.2 Acidosis; I12.0 Hypertensive chronic kidney disease with stage 5 chronic kidney disease or end stage renal disease; R18.8 Other ascites; K76.6 Portal hypertension; K56.609 Unspecified intestinal obstruction, unspecified as to partial versus complete obstruction; K55.9 Vascular disorder of intestine, unspecified; J98.11 Atelectasis; B37.49 Other urogenital candidiasis; Z16.12 Extended spectrum beta lactamase (ESBL) resistance; R65.20 Severe sepsis without septic shock; N40.1 Benign prostatic hyperplasia with lower urinary tract symptoms; R33.8 Other retention of urine; E87.5 Hyperkalemia; K72.90 Hepatic failure, unspecified without coma; B96.1 Klebsiella pneumoniae [K. pneumoniae] as the cause of diseases classified elsewhere; K74.60 Unspecified cirrhosis of liver; K80.20 Calculus of gallbladder without cholecystitis without obstruction; Z68.24 Body mass index [BMI] 24.0-24.9, adult; Z79.899 Other long term (current) drug therapy
CPT/HCPCS: 36415; 49083; 51702; 71045; 74018; 74250; 76705; 78445; 80048; 80053; 81001; 82140; 82150; 82945; 83605; 83615; 83735; 83880; 84100; 84132; 84154; 84155; 84157; 84300; 84484; 85025; 85610; 85730; 87040; 87070; 87075; 87081; 87086; 87186; 87205; 89051; 92610; 93005; 96365; 96375; 97110; 97116; 97161-GP; 97530; 99285; A9510; C1751; J0696; J1450; J1940; J2001; J2185; J2270; J3370; J7030; J7060; P9046; Q0092